=== PATIENT | female | born 1970 | race Two or more races ===

== ENCOUNTER 2024-07-22 19:17 | Outpatient (REF) | payer BC, SELFPAY ==
[2024-07-29 12:09] LABS: Age Gdln ACOG Testing Note (.); HPV Aptima Negative (Negative); IGP, Aptima HPV, rfx 16/18,45 Note (.)
== END 2024-07-22 19:18 | disposition home or self-care (01) ==
LOC: LAB 19:17
PROVIDERS: Visit Provider Physician Assistant
DX: Z01.419 Encounter for gynecological examination (general) (routine) without abnormal findings (principal)
CPT/HCPCS: 88175

== ENCOUNTER 2024-07-30 08:59 | Outpatient (OUT) | payer BC, SELFPAY ==
--- NOTE | 2024-07-30 09:13 | XR_ITS ---
[address] [address] Patient Name: JULISSA MAYA MRN: [id number] date: 1970 Sex: F Assigned Patient Location: [facility] Current Patient Location: [facility] Accession/Order Number: [id number] Exam Date: 07/30/2024 09:35 Report Date: 07/30/2024 10:12 At the request of: ROSA JERRY Procedure: XR DEXA axial skeleton EXAMINATION: XR DEXA axial skeleton HISTORY: Post Menopausal State Z78.0 COMPARISON: No relevant comparison available. TECHNIQUE: Dual-energy X-ray absorptiometry (DXA) was performed. FINDINGS: SPINE ANALYSIS: Average bone mineral density is 1.2-3 g/cm2. T-score (standard deviation relative to young adult mean): 0.2 . HIP ANALYSIS: Lowest bone mineral density is within the right femoral neck, 0.945 g/cm2. T-score (standard deviation relative to young adult mean): -0.7 . XR/XR DEXA axial skeleton IMPRESSION: World Health Organization Classification: Normal - Low Fracture Risk FRAX: Cannot calculate. Pharmacologic treatment recommendations * No uniform recommendation applies to all patients. Management plans must be individualized. * Consider initiating pharmacologic treatment in postmenopausal women and men >= 50 years of age who have the following: Primary fracture prevention: * T-score <= - 2.5 at the femoral neck, total hip, lumbar spine, 33% radius (some uncertainty with existing data) by DXA. * Low bone mass (osteopenia: T-score between - 1.0 and - 2.5) at the femoral neck or total hip by DXA with a 10-year hip fracture risk >= 3% or a 10-year major osteoporosis-related fracture risk >= 20% (i.e., clinical vertebral, hip, forearm, or proximal humerus) based on the [place]-adapted FRAXregistered model. Secondary fracture prevention: * Fracture of the hip or vertebra regardless of BMD [4, 5]. * Fracture of proximal humerus, pelvis, or distal forearm in persons with low bone mass (osteopenia: T-score between - 1.0 and - 2.5). The decision to treat should be individualized in persons with a fracture of the proximal humerus, pelvis, or distal forearm who do not have osteopenia or low BMD [12, 13]. Don MS, Zandra SL, Wilfredo KL, Tuyet EM, Juana KG, AJ, Demond ES. The clinician's guide to prevention and treatment of osteoporosis. Osteoporos Int. 2021;33(10):8916-8893. doi: 10.1007/h09712-780-30612-g. Epub 2021Feb 15. Erratum in: Osteoporos Int. 2021May 17;: PMID: [id number]; PMCID: [id number]. Electronically authenticated by: STAN VITAL Date: 07/30/2024 10:12
--- NOTE | 2024-07-30 09:13 | MM_ITS ---
Patient Name: JULISSA MAYA MR#: [id number] : 1970 Exam Date: 07/30/2024 Ordering Doctor: GAEL Chatman . RADIOLOGY REPORT PROCEDURE: MM TOMOSYNTHESIS SCREENING BI COMPARISON: MG MAMM SCREEN LUZMARIA W CAD, 01/18/2022. MG MAMM SCREEN LUZMARIA W CAD, 07/10/2023. INDICATIONS: Screening Calculator Name NCI Breast Cancer Risk Assessment Tool 5 Year Breast Cancer Risk 2.50% Lifetime Breast Cancer Risk 16.60% Personal Breast Cancer No Personal Ovarian Cancer No Treatments None Family Cancers Mother with breast cancer at age 73; Aunt-maternal with cervical cancer at age 25. LOCATION: [facility] BREAST COMPOSITION: The breasts are heterogeneously dense,which may obscure small masses. FINDINGS: DIAGNOSTIC CATEGORY 2--BENIGN FINDING. NO CHANGE FROM COMPARISON. Scattered benign-appearing nodules are present. Scattered benign-appearing calcifications are present. Scattered benign-appearing lymph nodes are present. RIGHT BREAST: No significant suspicious finding. LEFT BREAST: No significant suspicious finding. RECOMMENDATIONS: ROUTINE MAMMOGRAM AND CLINICAL EVALUATION IN 12 MONTHS. PLEASE NOTE: A NORMAL MAMMOGRAM DOES NOT EXCLUDE THE POSSIBILITY OF BREAST CANCER. A CLINICALLY SUSPICIOUS PALPABLE LUMP SHOULD BE BIOPSIED. Dictated by: Cholo Nuñez MD on 08/03/2024 at 08:59 Approved by: Cholo Nuñez MD on 08/03/2024 at 09:03
--- OUTSIDE RECORDS SUMMARY | 2024-07-30 09:18 | XMS_ITS | CCD ---
Author Organization [facility] Care Team Providers Care Site Monitor Name Role Phone MD Dottie Malcolm Attending Provider MD Tom Fishman Primary Care Provider [phone] Dottie Malcolm Unavailable Dottie Malcolm Admitting Unavailable Dottie Malcolm Attending Unavailable Tom Fishman Primary Care Unavailable Dottie Mlacolm Admitting Unavailable Dottie Malcolm Attending Unavailable Tom Fishman Primary Care Unavailable Dottie Malcolm Attending Unavailable Tom Fishman Primary Care Unavailable Dottie Malcolm Admitting Unavailable TOM FISHMAN Referring TOM Santiago Primary Care UnavailJENNY English Attending Unavailable Tom Fishman MD Primary Care Provider Allergies Allergy Classification Reported Allergen(s) Allergy Type Date of Onset Reaction(s) Facility (4 sources) Penicillin G Drug Allergy Unknown [employer] Other (3 sources) Penicillins; Translations: [PENICILLINS] Propensity to adverse reactions to drug (disorder) 7 [facility] Medications Current Medications Medication Drug Class(es) Dates Sig (Normalized) Sig (Original) Anoro Ellipta 62.5-25 MCG/INH (1 source) Start: 10-10-2022 take 1 puff(s) by inhalation once daily Anoro Ellipta 62.5-25 MCG/INH 1 puff Inhalation Once a day for 30 days Sep, Active Ascorbic Acid (6 sources) Vitamin C Ascorbic Acid (VITAMIN C PO) Take by oral route. Active Vitamin C Active Bisoprolol / hydroCHLOROthiazide (6 sources) Thiazide Diuretic, beta-Adrenergic Hussain Bisoprolol-hydroCHLO ROthiazide (ZIAC PO) 1 (one) time each day at the same time Active take 1 tablet by heaven th every twenty-four hours Bisoprolol-hydroCHLOROthiazide 5-6.25 MG 1 tablet Orally Once a day Active cetirizine hydrochloride 10 mg oral tablet (4 sources) Histamine-1 Receptor Antagonist take 1 tablet by mouth once daily ZyrTEC Allergy 10 MG 1 tablet Orally Once a day Active [place]-3 Fatty Acids (FISH OIL PO) (2 sources) Start: 024 [place]-3 Fatty Acids (FISH OIL PO) 01/20/2024 Active 28 actuat tiotropium 0.0025 mg/actuat inhalation spray (2 sources) Anticholinergic Start: 023 take 2 puff(s) by inhalation once daily Spiriva Respimat 2.5 MCG/ACT 2 puffs Inhalation Once a day for 30 days Nov, Active VITAMIN D PO (2 sources) VITAMIN D PO Vitamin D Active Vitamin D3 (4 sources) Vitamin D3 Activ e Problems Active Problems Problem Classification Problem Date Documented Date Episodic/Chronic Asthma (7 sources) Mild intermittent asthma; Translations: [Mild intermittent asthma, uncomplicated] Chronic Malaise and fatigue (1 source) Other fatigue; Translations: [Other fatigue] Onset: 04-07-2024 Episodic Nutritional deficiencies (1 source) Vitamin D deficiency, unspecified; Translations: [Vitamin D deficiency, unspecified] Onset: 04-07-2024 Chronic Other diseases of kidney and ureters (1 source) Disorder of kidney and ureter, unspecified; Translations: [Disorder of kidney and ureter, unspecified] Onset: 04-07-2024 Episodic Other liver diseases (1 source) Abnormal levels of other serum enzymes; Translations: [Abnormal levels of other serum enzymes] Onset: 04-07-2024 Episodic Other lower respiratory disease (1 source) Shortness of breath Episodic Other lower respiratory disease (3 sources) Nodule of lung; Translations: [Solitary pulmonary nodule] Episodic Other lower respiratory disease (2 sources) Solitary pulmonary nodule; Translations: [Solitary pulmonary nodule] Onset: 03-05-2023 Episodic Other screening for suspected conditions (not mental disorders or infectious disease) (2 sources) Patient encounter status; Translations: [Encounter for screening mammogram for malignant neoplasm of breast] 10-02-2024 Episodic Residual codes; unclassified (4 sources) Obstructive sleep apnea syndrome; Translations: [Obstructive sleep apnea (adult) (pediatric)] Chronic Residual codes; unclassified (4 sources) Obstructive sleep apnea (adult) (pediatric) Chronic Residual codes; unclassified (1 source) Obstructive sleep apnea (adult)(pediatric); Translations: [Obstructive sleep apnea (adult) (pediatric)] Onset: 11-06-2022 Chronic Residual codes; unclassified (2 sources) Postmenopausal state; Translations: [Asymptomatic menopausal state] 07-22-2024 Episodic Past or Other Problems Problem Classification Problem Date Documented Da te Episodic/Chronic Other lower respiratory disease (1 source) Shortness of breath; Translations: [Shortness of breath] Onset: 10-23-2022 Episodic Results Test Name Value Interpretation Reference Range Facil ity CBC AND AUTO DIFFon 04-07-20 ABSOLUTE BASOPHIL 0.0 X10E9/L Normal 0.0-0.2 [facility] Comment on above: Performed By: #### C MIHAI MCGINNIS, 83619-5, THYR, 25668-5 #### [facility] ([id number]) [address], [address] [place] [address] ABSOLUTE NEUTROPHIL 2.7 X10E9/L Normal 1.5-6.6 [facility] Comment on above: Performed By: #### Kiet MCGINNIS CMP, 27805-9, THYR, 60562-9 #### [facility] ([id number]) [address], [address] [place] [address] Basophils/100 WBC (Bld) 0.4 % Normal [facility] Comment on above: Performed By: #### C BCA CMP, 38351-9, THYR, 37643-1 #### [facility] ([id number]) [address], [address] [place] [address] Eosinophils (Bld) [#/Vol] 0.1 10*3/uL Normal 0.0-0.4 [facility] Comment on above: Performed By: #### Kiet BCA CMP, 95670-0, THYR, 82461-3 #### [facility] ([id number]) [address], [address] [place] [address] Eosinophils/100 WBC (Bld) 2.1 % Normal [facility] Comment on above: Performed By: #### C BCA, CMP, 14106-0, THYR, 90145-0 #### [facility] ([id number]) [address], [address] [place] [address] Erythrocyte distribution width (RBC) [Ratio] 13.7 % Normal 11.5-15.0 [facility] Comment on above: Performed By: #### C BCA, CMP, 48040-4, THYR, 15370-4 #### [facility] ([id number]) [address], [address] [place] [address] Hematocrit (Bld) [Volume fraction] 37.8 % Normal 35-47 [facility] Comment on above: Performed By: #### C BCA, CMP, 97607-1, THYR, 07475-2 #### [facility] ([id number]) [address] [place] [address] Hemoglobin (Bld) [Mass/Vol] 13.0 g/dL Normal 11.7-15.5 [facility] Comment on above: Performed By: #### C BCA, CMP, 50596-1, THYR, 07117-0 #### [facility] ([id number]) [address], [address] [place] [address] Lymphocytes (Bld) [#/Vol] 2.4 10*3/uL Normal 1.0-3.5 [facility] Comment on above: Performed By: #### C BCA, CMP, 69382-4, THYR, 56153-0 #### [facility] ([id number]) [address] [place] [address] Lymphocytes/100 WBC (Bld) 43.2 % Normal [facility] Comment on above: Performed By: #### C BCA, CMP, 78806-1, THYR, 41044-9 #### [facility] ([id number]) [address], [address] [place] [address] MCH (RBC) [Entitic mass] 30.6 pg Normal 27-34 [facility] Comment on above: Performed By: #### C BCA, CMP, 18724-5, THYR, 45107-2 #### [facility] ([id number]) [address] [address] [place] [address] MCHC (RBC) [Mass/Vol] 34.5 g/dL Normal 32-36 [facility] Comment on above: Performed By: #### C BCA, CMP, 58524-1, THYR, 74689-6 #### [facility] ([id number]) [address], [address] [place] [address] MCV (RBC) [Entitic vol] 89 fL Normal 80-100 [facility] Comment on above: Performed By: #### Kiet BCA, CMP, 28014-5, THYR, 02132-9 #### [facility] ([id number]) [address] [address] [place] [address] Monocytes (Bld) [#/Vol] 0.4 10*3/uL Normal 0-0.9 [facility] Comment on above: Performed By: #### C BCA, CMP, 63425-3, THYR, 70423-9 #### [facility] ([id number]) [address] [address] [place] [address] Monocytes/100 WBC (Bld) 6.5 % Normal [facility] Comment on above: Performed By: #### C BCA, CMP, 94618-4, THYR, 49154-5 #### [facility] ([id number]) [address] [address] [place] [address] Neutrophils/100 WBC (Bld) 47.8 % Normal [facility] Comment on above: Performed By: #### C BCA, CMP, 74088-0, THYR, 76405-6 #### [facility] ([id number]) [address], [facility] [address] [place] [address] Platelet mean volume (Bld) [Entitic vol] 10.7 fL Normal 7-12 [facility] Comment on above: Performed By: #### C BCA, CMP, 11478-8, THYR, 18243-6 #### [facility] ([id number]) [address] [address] [place] [address] Platelets (Bld) [#/Vol] 136 10*3/uL Low 150-450 [facility] Comment on above: Performed By: #### C BCA, CMP, 40821-8, THYR, 87891-5 #### [facility] ([id number]) [address] [facility] [address] [place] [address] RBC COUNT 4.26 X10E12/L Normal 3.80-5.20 [facility] Comment on above: Performed By: #### C BCA, CMP, 35162-8, THYR, 94019-0 #### [facility] ([id number]) [address] [address] [place] [address] WBC (Bld) [#/Vol] 5.6 10*3/uL Normal 4.0-11.0 [facility] Comment on above: Performed By: #### C BCA, CMP, 28862-3, THYR, 12632-9 #### [facility] ([id number]) [address], [address] [place] [address] COMPREHENSIVE METABOLIC PANE Misbah 04-07-2024 Albumin [Mass/Vol] 4.0 g/dL Normal 3.2-5.3 [facility] Comment on above: Performed By: #### C BCA, CMP, 46538-4, THYR, 72989-2 #### [facility] ([id number]) [address], [address] [place] [address] ALP [Catalytic activity/Vol] 89 U/L Normal 39-130 [facility] Comment on above: Performed By: #### C BCA, CMP, 65778-5, THYR, 09551-6 #### [facility] ([id number]) [address], [address] [place] [address] ALT [Catalytic activity/Vol] 47 U/L High 0-31 [facility] Comment on above: Performed By: #### C BCA, CMP, 05607-7, THYR, 83453-9 #### [facility] ([id number]) [address], [address] [place] [address] Anion gap [Moles/Vol] 8 mmol/L Normal 5-15 [facility] Comment on above: Performed By: #### C BCA, CMP, 81335-6, THYR, 17156-0 #### [facility] ([id number]) [address], [address] [place] [address] AST [Catalytic activity/Vol] 36 U/L Normal 0-41 [facility] Comment on above: Performed By: #### C BCA, CMP, 35115-0, THYR, 94136-9 #### [facility] ([id number]) [address], [address] [place] [address] Bilirubin [Mass/Vol] 1.2 mg/dL Normal 0.3-1.2 [facility] Comment on above: Performed By: #### C BCA, CMP, 60443-9, THYR, 33394-0 #### [facility] ([id number]) [address], [address] [place] [address] Calcium [Mass/Vol] 9.1 mg/dL Normal 8.5-10.5 [facility] Comment on above: Performed By: #### C BCA, CMP, 42431-8, THYR, 70079-0 #### [facility] ([id number]) [address], [address] [place] [address] Chloride [Moles/Vol] 102 mmol/L Normal 98-109 [facility] Comment on above: Performed By: #### C BCA, CMP, 85061-0, THYR, 64316-2 #### [facility] ([id number]) [address], [address] [place] [address] CO2 [Moles/Vol] 28 mmol/L Normal 22-32 [facility] Comment on above: Performed By: #### C BCA, CMP, 42102-4, THYR, 33454-0 #### [facility] ([id number]) [address], [address] [place] [address] Creatinine [Mass/Vol] 0.94 mg/dL Normal 0.40-1.00 [facility] Comment on above: Result Comment: METH OD TRACEABLE TO IDMS STANDARD Performed By: #### C BCA, CMP, 90558-7, THYR, 67037-3 #### [facility] ([id number]) [address], [address] [place] [address] GFR/1.73 sq M.predicted among non-blacks MDRD (S/P/Bld) [Vol rate/Area] 72 mL/min/{1.73_m2} Normal >59 [facility] Comment on above: Result Comment: Reported eGFR is based on the CKD-EPI 2020 equation that does not use a race coefficient. Performed By: #### C BCA, CMP, 61037-2, THYR, 24331-4 #### [facility] ([id number]) [address], [address] [place] [address] Glucose [Mass/Vol] 114 mg/dL High 65-99 [facility] Comment on above: Performed By: #### C BCA, CMP, 74612-8, THYR, 17194-4 #### [facility] ([id number]) [address], [address] [place] [address] Potassium [Moles/Vol] 4.0 mmol/L Normal 3.5-5.0 [facility] Comment on above: Performed By: #### C BCA, CMP, 10089-5, THYR, 94887-8 #### [facility] ([id number]) [address], [address] [place] [address] Protein [Mass/Vol] 7.1 g/dL Normal 6.0-8.0 [facility] Comment on above: Performed By: #### C BCA, CMP, 45803-3, THYR, 57506-6 #### [facility] ([id number]) [address] [place] [address] Sodium [Moles/Vol] 138 mmol/L Normal 134-146 [facility] Comment on above: Performed By: #### C BCA, CMP, 55736-7, THYR, 46785-1 #### [facility] ([id number]) [address] [place] [address] Urea nitrogen [Mass/Vol] 19 mg/dL Normal 5-23 [facility] Comment on above: Performed By: #### C BCA, CMP, 54371-7, THYR, 31305-9 #### [facility] ([id number]) [address], [address] [place] [address] Lipid 1996 panelon 4 Cholesterol [Mass/Vol] 184 mg/dL Normal 150-200 [facility] Comment on above: Performed By: #### C BCA, CMP, 07162-9, THYR, 35489-9 #### [facility] ([id number]) [address], [address] [place] [address] Cholesterol in HDL [Mass/Vol] 47 mg/dL Normal >39 [facility] Comment on above: Result Comment: HDL <40 mg/dL - High Risk HDL > or = 40mg/dL- Desirable HDL >60 mg/dL - Negative Risk Performed By: #### C BCA, CMP, 12441-2, THYR, 72005-1 #### [facility] ([id number]) [address], [address] [place] [address] Cholesterol in LDL [Mass/Vol] 116 mg/dL Normal <130 [facility] Comment on above: Result Comment: LDL <100 mg/dL - Desirable LDL >160 mg/dL - High Risk Performed By: #### C BCA, CMP, 24415-3, THYR, 42107-7 #### [facility] ([id number]) [address], [address] [place] [address] Cholesterol in VLDL [Mass/Vol] 21 mg/dL Normal 0-30 [facility] Comment on above: Performed By: #### C BCA, CMP, 31826-4, THYR, 06182-0 #### [facility] ([id number]) [address], [address] [place] [address] CHOLESTEROL:HDL 3.9 Normal 1.0-5.0 [facility] Comment on above: Performed By: #### C BCA, CMP, 37218-2, THYR, 27854-0 #### [facility] ([id number]) [address], [address] [place] [address] Triglyceride [Mass/Vol] 104 mg/dL Normal 27-150 [facility] Comment on above: Performed By: #### C BCA, CMP, 64247-1, THYR, 21094-1 #### [facility] ([id number]) [address] [place] [address] THYROID PROFILEon 04-07-2024 Free T4 [Mass/Vol] 0.70 ng/dL Normal 0.61-1.60 [facility] Comment on above: Performed By: #### C BCA, CMP, 69020-2, THYR, 91035-7 #### [facility] ([id number]) [address] [place] [address] TSH 1.16 uIU/mL Normal 0.49-4.67 [facility] Comment on above: Performed By: #### C RAS, CMP, 90388-6, THYR, 56301-0 #### [facility] ([id number]) [address] [place] [address] URINE CULTUREon 04-07-2024 Bacteria identified Cx Nom (U) CULTURE RESULTS 10,000 to 50,000 ORGANISMS/mL KLEBSIELLA PNEUMONIAE <10,000 ORGANISMS/mL NORMAL URO GENITAL JEFFRY [ S = SUSCEPTIBLE R = RESISTANT I = INTERMEDIATE S-DO = Susceptible-dose dependent NS = Non-suscceptible NO = No Interpretation ] Organism: KLEBSIELLA PNEUMONIAE Antibiotic Interpretation ELIAS Status AMPICILLIN R >=32 F AMP/SULBACTAM S 4/2 F CEFAZOLIN S <=4 F CEFTRIAXONE S <=1 F CIPROFLOXACIN S <=0.25 F GENTAMICIN S <=1 F LEVOFLOXACIN S <=0.12 F NITROFURANTOIN R 128 F PIPERACIL/TAZOBACTAM S <=4 F TOBRAMYCIN S <=1 F TRIMETH/SULFAMETHOXAZ OLE S <=1/19 F Susceptible [facility] Comment on above: Performed By: #### 6 30-4 #### [facility] ([id number]) [address] [place] [address] Vitamin D+Metabolites [Mass/ Vol]on 04-07-2024 VITAMIN D 25 HYD TOT 60.6 ng/mL Normal 30-100 [facility] Comment on above: Result Comment: Vitamin D status 25 [place] Vitamin D Deficiency <20 ng/mL Insufficiency 20-29 ng/mL Sufficiency 30-100 ng/mL Toxicity >100 ng/mL NOTE: A pediatric reference range has not been established by the urban sociologist of this kit. The [place] [employer] recommends a Vitamin D level of = or >20ng/mL in infants and children. Performed By: #### C BCA, [facility], 17198-1, THYR, 20551-4 #### [facility] ([id number]) [address] [place] [address] [address] [place] [address] [facility] chest wo [facility] 03-05-2023 CT chest wo [facility] [place] [address] CT Scan Report Signed Patient: Meera Vidal MR#: [id number] : 1970 Acct:[id number] Age/Sex: 52 / F ADM Date: 03/05/23 Loc: CT Room: Type: [facility] Attending Dr: Dottie Malcolm MD Copies to: Dottie Malcolm MD Ordering Provider: Dottie Malcolm MD Date of Service: 03/05/23 CT/CT chest wo con: R91.1 CT CHEST WITHOUT IV CONTRAST: CLINICAL HISTORY: Follow-up lung nodule COMPARISON: CT chest 10/23/2022 TECHNIQUE: Spiral images were obtained through the chest without IV contrast. This CT exam was performed using one or more following dose reduction techniques: Automated exposure control, adjustment of the mA and/or kV according to patient size, or use of iterative reconstruction technique. FINDINGS: Mediastinum:Thoracic aorta is normal in caliber. Pulmonary trunk appears nondilated. No pleural effusion. No lymphadenopathy. The esophagus is grossly unremarkable. Lungs:Dependent atelectatic changes. Bibasilar atelectasis. No consolidation, pneumothorax or pleural effusion. Stable 8 mm noncalcified pulmonary nodule right upper lobe now seen on series 5 image 21. Stable 3 mm noncalcified pulmonary nodule superior segment right lower lobe series 5 image 20. Previous identified 3 mm nodule involving the right lower lobe has resolved. No new or enlarging suspicious pulmonary nodules. Abd:No acute findings. Soft tissues/Bones: Visualized soft tissue surrounding the chest wall demonstrate no acute findings. Osseous structures demonstrate degenerative change. 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 CT/CT chest wo con IMPRESSION: Previously identified 3 mm nodule involving the right lower lobe has resolved. The additional remaining nodules within the right lung are unchanged. Repeat CT in one year is recommended to ensure stability. Impression dictated by: Chino Barraza Jr., Dwight03/05/2023 3:42 PM Dictation Location: [place] [address] Transcribed By: [facility] 03/05/23 1542 Dictated By: Chino Barraza Jr, DO 03/05/23 1537 Signed By: 03/05/23 1542 [facility] CT chest wo conon 10-23-2022 CT chest wo con [facility] [place] [address] CT Scan Report Signed Patient: Meera Vidal MR#: [id number] : 1970 Acct:[id number] Age/Sex: 52 / F ADM Date: 10/23/22 Loc: CT Room: Type: [facility] Attending Dr: Dottie Malcolm MD Copies to: Dottie Malcolm MD Ordering Provider: Dottie Malcolm MD Date of Service: 10/23/22 CT/CT chest wo con: R06.02 CT CHEST WITHOUT IV CONTRAST: CLINICAL HISTORY: Difficulty breathing. COMPARISON: Chest 05/08/2022 TECHNIQUE: Spiral images were obtained through the chest without IV contrast. This CT exam was performed using one or more following dose reduction techniques: Automated exposure control, adjustment of the mA and/or kV according to patient size, or use of iterative reconstruction technique. FINDINGS: Mediastinum:Thoracic aorta appears normal in caliber. Pulmonary trunk appears nondilated. No pleural effusion. No lymphadenopathy. The esophagus is grossly unremarkable. Lungs:No consolidation, pneumothorax or pleural effusion. Mild scattered areas of atelectasis/scarring. Trachea and distal airways appear patent. 8 mm nodule right upper lobe series 4 image 19. 3 mm pulmonary nodule superior segment right lower lobe series 4 image 20. 3 mm pulmonary nodule right lower lobe series 4 image 30. Abd:No acute findings. Soft tissues/Bones: No focal soft tissue abnormality. Osseous structures demonstrate degenerative change. 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 CT/CT chest wo con IMPRESSION: No acute findings. Noncalcified pulmonary nodules, largest measuring 8 mm within the right upper lobe. Please see follow-up recommendations below. Fleischner Society guidelines for follow-up and management of incidentally detected pulmonary nodules: ? ? Multiple Solid Nodules: ? ? Nodule size equals 6-8 mm In a low-risk patient, CT at 3-6 months, then consider CT at 18-24 months. In a high-risk patient, CT at 3-6 months, then CT at 18-24 months. ? Impression dictated by: Chino Barraza Jr., D.O.10/23/2022 2:41 PM Dictation Location: [place] [address] Transcribed By: [facility] 10/23/22 1441 Dictated By: Chino Barraza Jr, DO 10/23/22 1436 Signed By: 10/23/22 1441 [facility] Vital Signs Date Time Vital Sign Value Performing Clinician Facility 07-22-2024 11:15-0400 Body height 162.6 cm Jenny MAYO Work Phone: [facility] 07-22-2024 11:15-0400 Body mass index (BMI) [Ratio] 39.48 kg/m2 Jenny MAYO Work Phone: [facility] 07-22-2024 11:15-0400 Body weight 104.33 kg Jenny MAYO Work Phone: [facility] 07-22-2024 11:15-0400 Diastolic blood pressure 78 mm[Hg] Jenny MAYO Work Phone: [facility] 07-22-2024 11:15-0400 Systolic blood pressure 122 mm[Hg] Jenny MAYO Work Phone: [facility] 09-11-2023 09:15-0500 Body height 160.02 cm Dottie Malcolm Other [employer] Other 09-11-2023 09:15-0500 Body mass index (BMI) [Ratio] 40.1 kg/m2 Dottie Ribeiroban Other [employer] Other 09-11-2023 09:15-0500 Body temperature 96.8 [degF] Dottie Gemaban Other [employer] Other 09-11-2023 09:15-0500 Body weight 102.7 kg Dottie Ribeiroban Other [employer] Other 09-11-2023 09:15-0500 Diastolic blood pressure 86 mm[Hg] Dottie Ribeiroban Other [employer] Other 09-11-2023 09:15-0500 Respiratory rate 20 /min Dottie Ribeiroban Other [employer] Other 09-11-2023 09:15-0500 SaO2% (BldA) [Mass fraction] 98 % Dottie Ribeiroban Other [employer] Other 09-11-2023 09:15-0500 Systolic blood pressure 142 mm[Hg] Dottie Gemaban Other [employer] Other 12-06-2022 09:30-0500 Body height 160.02 cm Dottie Ribeiroban Other [employer] Other 12-06-2022 09:30-0500 Body mass index (BMI) [Ratio] 40.56 kg/m2 Dottie Ribeiroban Other [employer] Other 12-06-2022 09:30-0500 Body temperature 97.4 [degF] Raulal Chaban Other [employer] Other 12-06-2022 09:30-0500 Body weight 103.87 kg Dottie Chaban Other [employer] Other 12-06-2022 09:30-0500 Diastolic blood pressure 86 mm[Hg] Raulal Chaban Other [employer] Other 12-06-2022 09:30-0500 Respiratory rate 20 /min Dottie Chaban Other [employer] Other 12-06-2022 09:30-0500 SaO2% (BldA) [Mass fraction] 98 % Dottie Ribeiroban Other [employer] Other 12-06-2022 09:30-0500 Systolic blood pressure 132 mm[Hg] Dottie Chaban Other [employer] Other 10-10-2022 10:15-0500 Body height 160.02 cm Dottie Ribeiroban Other [employer] Other 10-10-2022 10:15-0500 Body mass index (BMI) [Ratio] 40.21 kg/m2 Dottie Ribeiroban Other [employer] Other 10-10-2022 10:15-0500 Body temperature 97.3 [degF] Raulal Chaban Other [employer] Other 10-10-2022 10:15-0500 Body weight 102.97 kg Dottie Chaban Other [employer] Other 10-10-2022 10:15-0500 Diastolic blood pressure 80 mm[Hg] Raultabby Ribeiromarcelo Other [employer] Other 10-10-2022 10:15-0500 Respiratory rate 20 /min Dottie Ribeiromarcelo Other [employer] Other 10-10-2022 10:15-0500 SaO2% (BldA) [Mass fraction] 98 % Dottie Ribeiroban Other [employer] Other 10-10-2022 10:15-0500 Systolic blood pressure 126 mm[Hg] Dottie Yun Other [employer] Other Encounters Encounter Date Encounter Type Care Provider Facility Start: 07-22-2024 End: 07-22-2024 Bamboo flowsheet Jenny MAYO Work Phone: [facility] Start: 07-22-2024 End: 07-22-2024 Bamboo flowsheet Jenny MAYO Work Phone: [facility] Start: 07-22-2024 End: 07-22-2024 Patient encounter procedure Jenny MAYO Work Phone: [facility] Start: 07-22-2024 End: 07-22-2024 Periodic preventive med est patient 40-64yrs Jenny MAYO Work Phone: [facility] Comment on above: Well woman exam with routine gynecological exam; Postmenopausal state; Breast cancer screening by mammogram Start: 07-22-2024 End: 07-22-2024 ambulatory JENNY JERRY Not Available Start: 04-07-2024 End: 04-07-2024 ambulatory [facility] Start: 09-11-2023 End: 09-11-2023 ambulatory Dottie Malcolm Other [employer] Other Start: 09-11-2023 Office outpatient vi sit 15 minutes Kamal Chaban [facility] Start: 06-12-2023 End: 06-12-2023 ambulatory Kamal Chaban Other [employer] Other Start: 06-12-2023 Telephone encounter Kamtabby Ribeiroban [facility] Start: 03-05-2023 End: 03-05-2023 ambulatory Kamal Chaban Facility:[facility] Start: 12-06-2022 End: 12-06-2022 ambulatory Kamal Chaban Other [employer] Other Start: 12-06-2022 Office outpatient vi sit 25 minutes Kamal Chaban [facility] Start: 11-06-2022 End: 11-06-2022 ambulatory Kamal Chaban Facility:[facility] Start: 11-06-2022 End: 11-06-2022 ambulatory MD Tom Fishman Work Phone: [facility] Work Phone: Start: 11-06-2022 End: 11-06-2022 Patient encounter procedure MD Tom Fishman Work Phone: [facility] Work Phone: Start: 10-23-2022 End: 10-23-2022 ambulatory Kamal Chaban Facility:[facility] Start: 10-23-2022 End: 10-23-2022 ambulatory MD Tom Fishman Work Phone: [facility] Work Phone: Start: 10-23-2022 End: 10-23-2022 Patient encounter procedure MD Tom Fishman Work Phone: [facility] [place] Work Phone: Start: 10-10-2022 End: 10-10-2022 ambulatory Kamal Chaban Other [employer] Other Start: 10-10-2022 Office outpatient ne w 45 minutes Dottie Malcolm [facility] Procedures Date Procedure Procedure Detail Performing Clinician Start: 10-23-2022 CT of chest without contrast MD Tom Fishman Work Phone: Plan of Treatment Date Care Activity Detail Author Start: 07-27-2025 End: 07-27-2025 Patient encounter procedure 07/27/2025 10:00 AM EDT Office Visit [facility] [address] [place] [address] Jenny Jerry PA [address] [place] [address] [place] [address] [facility] Start: 07-22-2024 End: 07-22-2025 DXA Skeletal system Views for bone density DEXA bone density Imaging Routine Postmenopausal state Expected: 07/22/2024 (Approximate), Expires: 07/22/2025 [facility] Comment on above: Expected: 07/22/2024 (Approximate), Expires: 07/22/2025 Start: 07-22-2024 End: 09-21-2025 MG Breast - bilateral Screening Bilateral screening mammogram Imaging Routine Breast cancer screening by mammogram Expected: 07/22/2024, Expires: 09/21/2025 [facility] Work Phone: Comment on above: Expected: 07/22/2024 , Expires: 09/21/2025 Start: 07-22-2024 End: 07-22-2024 Patient encounter procedure 07/22/2024 11:00 AM EDT Office Visit [facility] [address] [place] [phone] Jenny Jerry, PA [address] [place], [place] [id number] Arrived [facility] Comment on above: Arrived THIN PREP TIS PAP AN D HR HPV DNA THIN PREP TIS PAP AND HR HPV DNA Pathology and Cytology Routine Well woman exam with routine gynecological exam Ordered: 07/22/2024 [facility] Comment on above: Ordered: 07/22/2024 Payers Date Payer Category Payer Self-pay 2006 Unknown BCBS BCBS [id number] 2006-Present [phone] [address] [place] [address] [id number] 2006 Unknown [id number] 1968 Unknown [id number] 1970 Unknown [id number] Unknown [id number] Unknown [id number] Unknown [id number] Social History Date Type Detail Facility Tobacco smoking status [facility] Unknown if ever smoked [facility] Work Phone: Start: 1970 Sex Assigned At Female F [facility] Sex Assigned At [employer] Other Tobacco smoking status [facility] Tobacco smoking consumption unknown [facility] Healthcare Start: 1970 Sex assigned at Not on file [facility] History of Present illness Narrative 07-22-2024 GAEL Pisano - 07/22/2024 11:00 AM EDT Note Date & Type Note Facility 07-22-2024 History of Presen t illness Narrative Reason for Appointment: Patient ID: Meera Vidal is a 53 y.o. female who presents for Well Women Visit Patient presents today for Annual Exam. MEDICATIONS Current Outpatient Medications Medication Instructions Ascorbic Acid (VITAMIN C PO) Take by oral route. Bisoprolol-hydroCHLOROthiazide (ZIAC PO) Every 24 hours [place]-3 Fatty Acids (FISH OIL PO) VITAMIN D PO Vitamin D ALLERGIES Allergies Allergen Reactions Penicillins PROBLEMS Active Ambulatory Problems Diagnosis Date Noted No Active Ambulatory Problems Resolved Ambulatory Problems Diagnosis Date Noted No Resolved Ambulatory Problems Past Medical History: Diagnosis Date Hypertension (CMS/HCC) Sleep apnea HISTORY PAST MEDICAL HISTORY SOCIAL HISTORY Past Medical History: Diagnosis Date Hypertension (CMS/HCC) Sleep apnea Social History Tobacco Use Smoking status: Not on file Smokeless tobacco: Not on file Substance Use Topics Alcohol use: Not on file Drug use: Not on file FAMILY HISTORY No family history on file. SURGICAL HISTORY Past Surgical History: Procedure Laterality Date BREAST BIOPSY Left 1996 US GUIDED NEEDLE LIVER BIOPSY 11/16/2019 US GUIDED NEEDLE LIVER BIOPSY 11/16/2019 REVIEW OF SYSTEMS Review of Systems: Review of Systems Constitutional: Negative. HENT: Negative. Eyes: Negative. Respiratory: Negative. Cardiovascular: Negative. Gastrointestinal: Negative. Genitourinary: Negative. Musculoskeletal: Negative. Skin: Negative. Neurological: Negative. All other systems reviewed and are negative. Hematological: Negative. Endocrine: Negative. Allergic/Immunologic: Negative. OBJECTIVE Objective: Physical Exam Constitutional: Appearance: Normal appearance. She is well-developed. Genitourinary: Vulva normal. Right Adnexa: not tender and no mass present. Left Adnexa: not tender and no mass present. No cervical discharge. Breasts: Breasts are soft. Right: Normal. Left: Normal. HENT: Head: Normocephalic. Nose: Nose normal. Mouth/Throat: Mouth: Mucous membranes are moist. Cardiovascular: Rate and Rhythm: Normal rate and regular rhythm. Pulmonary: Effort: Pulmonary effort is normal. Breath sounds: Normal breath sounds. Abdominal: General: Bowel sounds are normal. There is no distension. Palpations: Abdomen is soft. Tenderness: There is no abdominal tenderness. There is no guarding or rebound. Musculoskeletal: General: No swelling. Normal range of motion. Cervical back: Normal range of motion. Right lower leg: No edema. Left lower leg: No edema. Neurological: General: No focal deficit present. Mental Status: She is alert and oriented to person, place, and time. Skin: General: Skin is warm and dry. Psychiatric: Mood and Affect: Mood normal. Behavior: Behavior normal. Vitals and nursing note reviewed. Exam conducted with a blocking machine tender present. Vitals: Estimated body mass index is 39.48 kg/m as calculated from the following: Height as of this encounter: 5' 4 . Weight as of this encounter: 230 lb. BP: 122/78 No LMP recorded. Patient is postmenopausal. ASSESSMENT & PLAN ICD-10-CM 1. Well woman exam with routine gynecological exam Z01.419 THIN PREP TIS PAP AND HR HPV DNA 2. Postmenopausal state Z78.0 DEXA bone density 3. Breast cancer screening by mammogram Z12.31 Bilateral screening mammogram Bilateral screening mammogram Annual Exam: Patient presents today for an annual exam. Patient states she is doing well and has no complaints. Pap was obtained without difficulty. Orders Placed This Encounter Procedures Bilateral screening mammogram DEXA bone density Follow Up: Patient is to return in one year for annual unless needed otherwise. Documented by GAEL Pisano on behalf of: GAEL Pisano documented in this encounter [facility] Evaluation note 09-11-2023 Note Date & Type Note Facility 09-11-2023 Evaluation note Encounter Date Diagnosis Assessment Notes Aug, Obstructive sleep apnea (ICD-10 - G47.33) Aug, Mild intermittent reactive airway disease without complication (ICD-10 - J45.20) [employer] Other Evaluation note 06-12-2023 Note Date & Type Note Facility 06-12-2023 Evaluation note Encounter Date Diagnosis Assessment Notes May, Obstructive sleep apnea (ICD-10 - G47.33) [employer] Other Evaluation note 12-06-2022 Note Date & Type Note Facility 12-06-2022 Evaluation note Encounter Date Diagnosis Assessment Notes Nov, Obstructive sleep apnea (ICD-10 - G47.33) Nov, Mild intermittent reactive airway disease without complication (ICD-10 - J45.20) Nov, Lung nodule (ICD-10 - R91.1) Discussed CT findings and follow-up plans [employer] Other Evaluation note 10-10-2022 Note Date & Type Note Facility 10-10-2022 Evaluation note Encounter Date Diagnosis Assessment Notes Sep, Mild intermittent reactive airway disease without complication (ICD-10 - J45.20) Anoro samples and education please Sep, Obstructive sleep apnea (ICD-10 - G47.33) Sep, Shortness of breath (ICD-10 - R06.02) [employer] Other Evaluation note Note Date & Type Note Facility Evaluation note No assessment information availa [facility] Work Phone: Evaluation note Note Date & Type Note Facility Evaluation note Diagnosis Well woman exam with routine gynecological exam Routine gynecological examination Postmenopausal state Asymptomatic postmenopausal status (age-related) (natural) Breast cancer screening by mammogram documented in this encounter [facility] History general Narrative - Reported Note Date & Type Note Facility History general Narrative - Reported Type Medical History hypertension Medical History COPD Surgical History breast duct removal 1998 [employer] Other Chief Complaint and Reason for Visit Chief Complaint g47.33 r06.02 Chief Complaint g47.33 r06.02 g47.33 r06.02 Advance Directives Advance Directive Response Recorded Date/ Time Advance Directives No October 23, 2022 3:57pm Summary Purpose Family History No Family History Records FoundNo Family History Records FoundNo Family History Records Found Additional Source Comments Care Teams (unrecognized sec tion and content) Team Status: Inactive Member Role Status Dates Dottie Malcolm MD Attending Provider Active Tom Fishman MD Primary Care Provider Active Team Status: Active Member Role Status Dates Tom Fishman MD Primary Care Provider Active Site Monitor Relationship Specialty Start Date End Date Tom Fishman MD [address] [place] [phone] PCP - General Internal Medicine 07/22/24 Site Monitor Relationship Specialty Start Date End Date Tom Fishman MD [address] [place] [address] PCP - General Internal Medicine 07/22/24 Goals (unrecognized section and content) Goals may be documented in a n alternate sectionGoals may be documented in an alternate sectionNo InformationNo InformationNo InformationNo Information REASON FOR VISIT (unrecogniz ed section and content) Reason Comments Well Women Visit INFORMATION SOURCE (unrecogn ized section and content) DATE CREATED AUTHOR 03/29/2023 [facility] DATE CREATED AUTHOR AUTHOR'S ORGANIZ ATION 04/10/2024 [facility] DATE CREATED AUTHOR AUTHOR'S ORGANIZ ATION 07/24/2024 [facility] [employer] EPIC FOR RECORDS PERTAINING TO PATIENTS WHO ARE OR HAVE BEEN ENROLLED IN A CHEMICAL DEPENDENCY/SUBSTANCEABUSE PROGRAM, SOME INFORMATION MAY BE OMITTED. This clinical summary was aggregated from multiple sources. Caution should be exercised in using it in the provision of clinical care. This summary normalizes information from multiple sources, and as a consequence, information in this document may materially change the coding, format and clinical context of patient data. In addition, data may be omitted in some cases. CLINICAL DECISIONS SHOULD BE BASED ON THE PRIMARY CLINICAL RECORDS. [employer] provides no warranty or guarantee of the accuracy or completeness of information in this document.
== END 2024-07-30 09:00 | disposition home or self-care (01) ==
LOC: MAMMO 09:03
PROVIDERS: Visit Provider Physician Assistant
DX: Z12.31 Encounter for screening mammogram for malignant neoplasm of breast (principal); Z78.0 Asymptomatic menopausal state; Z80.3 Family history of malignant neoplasm of breast; Z80.8 Family history of malignant neoplasm of other organs or systems
CPT/HCPCS: 77063; 77067; 77080

== ENCOUNTER 2025-07-27 19:38 | Outpatient (REF) | payer BC, SELFPAY ==
--- OUTSIDE RECORDS SUMMARY | 2025-07-27 10:00 | XMS_ITS | Encounter Summary ---
Author Organization [facility] Address [address] [place] [address] Care Team Providers Care Media Sales Executive Name Role Phone Jenny Terrell MD Primary Care Provider [phone]- [phone] Reason for Visit * Reason Comments Well Women Visit Encounter Details Date Type Department Care Team (Late st Contact Info) Description 07/27/2025 10:00 AM EDT Office Visit [facility] [address] [place] [address] Priyanka Chandra, MAGGIE [address] [place] [address] Well woman exam with routine gynecological exam; Breast cancer screening by mammogram; Hormone disorder; Weight gain Social History Tobacco Use Types Packs/Day Years Used Date Smoking Tobacco: Never Assessed Comments No Sex and Gender Information Value Date Recorded Sex Assigned at Not on file Legal Sex Female 7:35 PM EDT Gender Identity Not on file Sexual Orientation Not on file documented as of this encounter Last Filed Vital Signs Vital Sign Reading Time Taken Comments Blood Pressure 128/80 07/27/2025 10:10 AM EDT Pulse - - Temperature - - Respiratory Rate - - Oxygen Saturation - - Inhaled Oxygen Concentration - - Weight 109 kg (240 lb) 07/27/2025 10:10 AM EDT Height - - Body Mass Index 41.2 07/22/2024 11:15 AM EDT documented in this encounter Progress Notes * Priyanka Chandra, GOVERNOR ASSEMBLER - 07/27/2025 10:00 AM EDT Reason for Appointment: Patient ID: Meera Vidal is a 54 y.o. female who presents for Well Women Visit Patient presents today for Annual Exam. MEDICATIONS Current Outpatient Medications Medication Instructions Ascorbic Acid (VITAMIN C PO) Take by oral route. Bisoprolol-hydroCHLOROthiazide (ZIAC PO) Every 24 hours [place]-3 Fatty Acids (FISH OIL PO) VITAMIN D PO Vitamin D ALLERGIES Allergies Allergen Reactions Penicillins PROBLEMS Active Ambulatory Problems Diagnosis Date Noted No Active Ambulatory Problems Resolved Ambulatory Problems Diagnosis Date Noted No Resolved Ambulatory Problems Past Medical History: Diagnosis Date Hypertension Sleep apnea HISTORY PAST MEDICAL HISTORY SOCIAL HISTORY Past Medical History: Diagnosis Date Hypertension Sleep apnea Social History Tobacco Use Smoking status: Not on file Smokeless tobacco: Not on file Substance Use Topics Alcohol use: Not on file Drug use: Not on file FAMILY HISTORY Family History Problem Relation Name Age of Onset Ovarian cancer Mother's Sister Thyroid cancer Mother's Sister Heart disease Maternal Grandmother SURGICAL HISTORY Past Surgical History: Procedure Laterality Date BREAST BIOPSY Left 1996 US GUIDED NEEDLE LIVER BIOPSY 11/16/2019 US GUIDED NEEDLE LIVER BIOPSY 11/16/2019 REVIEW OF SYSTEMS Review of Systems: Review of Systems Constitutional: Positive for fatigue, night sweats, unexpected weight change and hot flashes. HENT: Negative. Eyes: Negative. Respiratory: Negative. Cardiovascular: Negative. Gastrointestinal: Negative. Genitourinary: Negative. Musculoskeletal: Negative. Skin: Negative. Neurological: Negative. All other systems reviewed and are negative. Hematological: Negative. Allergic/Immunologic: Negative. OBJECTIVE Objective: Physical Exam Constitutional: Appearance: Normal appearance. She is well-developed. Genitourinary: Vulva normal. No vaginal prolapse present. No vaginal atrophy present. Breasts: Breasts are soft. Right: Normal. Left: Normal. Cardiovascular: Rate and Rhythm: Normal rate and regular rhythm. Pulmonary: Effort: Pulmonary effort is normal. Breath sounds: Normal breath sounds. Abdominal: General: Bowel sounds are normal. There is no distension. Palpations: Abdomen is soft. Tenderness: There is no abdominal tenderness. There is no guarding or rebound. Musculoskeletal: General: No swelling. Normal range of motion. Right lower leg: No edema. Left lower leg: No edema. Neurological: Mental Status: She is alert and oriented to person, place, and time. Skin: General: Skin is warm and dry. Psychiatric: Mood and Affect: Mood normal. Behavior: Behavior normal. Vitals and nursing note reviewed. Exam conducted with a production mechanic present. Vitals: Estimated body mass index is 41.2 kg/m?? as calculated from the following: Height as of 07/22/24: 5' 4 . Weight as of this encounter: 240 lb. BP: 128/80 No LMP recorded. Patient is postmenopausal. ASSESSMENT & PLAN ICD-10-CM 1. Well woman exam with routine gynecological exam Z01.419 THIN PREP TIS PAP AND HR HPV DNA 2. Breast cancer screening by mammogram Z12.31 Bilateral screening mammogram Bilateral screening mammogram Annual: Patient presents today for an annual exam. Patient states she is doing well and has no complaints. Pap was obtained without difficulty and patient given mammogram order to have scheduled/obtained. Patient does experience some weight gain and some hormone changes. Patient was advised can use Metformin, Adipex and GLP1. Patient does not wish for these at this time Discussed Hormone labs and compound pharmacy with patient. Patient would like to proceed with Buderer packet and labs. Orders Placed This Encounter Procedures Bilateral screening mammogram Follow Up: Patient is to return in one year for annual unless needed otherwise. Documented by Caryn Guevara LPN on behalf of: Priyanka Chandra NP documented in this encounter Plan of Treatment Upcoming Encounters Date Type Department Care Team (Late st Contact Info) Description 08/02/2026 2:00 PM EDT Procedure Visit [facility] [address] [place] [phone] Jenny Chatman PA [address] [place] [address] Scheduled Orders Name Type Priority Associated Diagnoses Orde r Schedule Bilateral screening mammogram Imaging Routine Breast cancer screening by mammogram Expected: 07/27/2025, Expires: 09/26/2026 THIN PREP TIS PAP AND HR HPV DNA Pathology and Cytology Routine Well woman exam with routine gynecological exam Ordered: 07/27/2025 Estradiol Lab Routine Hormone disorder Ordered: 07/27/2025 Estrone Lab Routine Hormone disorder Ordered: 07/27/2025 Cortisol, free Lab Routine Hormone disorder Expected: 07/27/2025 (Approximate), Expires: 07/27/2026 DHEA-sulfate Lab Routine Hormone disorder Ordered: 07/27/2025 Sex hormone binding globulin Lab Routine Hormone disorder Ordered: 07/27/2025 Insulin, total Lab Routine Hormone disorder Expected: 07/27/2025 (Approximate), Expires: 07/27/2026 Serotonin serum Lab Routine Hormone disorder Expected: 07/27/2025 (Approximate), Expires: 07/27/2026 TSH Lab Routine Hormone disorder Ordered: 07/27/2025 T4, free Lab Routine Hormone disorder Ordered: 07/27/2025 T3, reverse Lab Routine Hormone disorder Ordered: 07/27/2025 Progesterone Lab Routine Hormone disorder Ordered: 07/27/2025 Vitamin D 1,25 dihydroxy Lab Routine Hormone disorder Ordered: 07/27/2025 Ferritin Lab Routine Hormone disorder Ordered: 07/27/2025 T3, free Lab Routine Hormone disorder Ordered: 07/27/2025 Thyroglobulin Lab Routine Hormone disorder Expected: 07/27/2025 (Approximate), Expires: 07/27/2026 Thyroglobulin Antibody Lab Routine Hormone disorder Expected: 07/27/2025 (Approximate), Expires: 07/27/2026 Thyroid peroxidase antibody Lab Routine Hormone disorder Ordered: 07/27/2025 T4 Lab Routine Hormone disorder Expected: 07/27/2025 (Approximate), Expires: 07/27/2026 TESTOSTERONE, FREE Lab Routine Hormone disorder Ordered: 07/27/2025 Testosterone, free, total Lab Routine Hormone disorder Ordered: 07/27/2025 Hemoglobin A1c Lab Routine Hormone disorder Ordered: 07/27/2025 Glucose, random Lab Routine Hormone disorder Expected: 07/27/2025 (Approximate), Expires: 07/27/2026 C-peptide Lab Routine Hormone disorder Expected: 07/27/2025 (Approximate), Expires: 07/27/2026 documented as of this encounter Visit Diagnoses Diagnosis Well woman exam with routine gynecological exam Routine gynecological examination Breast cancer screening by mammogram Hormone disorder Unspecified endocrine disorder Weight gain Other symptoms concerning nutrition, metabolism, and development documented in this encounter Care Teams Media Sales Executive Relationship Specialty Start Date End Date Jenny Terrell MD [address] [facility] [phone] PCP - General Internal Medicine 07/22/24 documented as of this encounter
--- OUTSIDE RECORDS SUMMARY | 2025-07-27 19:41 | XMS_ITS | Encounter Summary ---
Author Organization [facility] Address [address] [place] [address] Care Team Providers Care Electric Distribution Engineer Name Role Phone Jenny Terrell MD Primary Care Provider [phone]- [phone] Encounter Details Date Type Department Care Team (Late Contact Info) Description 08/03/2024 Abstract [facility] [address] [place] [address] Jenny Chatman PA [address] [place], [facility] Social History Tobacco Use Types Packs/Day Years Used Date Smoking Tobacco: Never Assessed Comments No Sex and Gender Information Value Date Recorded Sex Assigned at Not on file Legal Sex Female 7:35 PM EDT Gender Identity Not on file Sexual Orientation Not on file documented as of this encounter Plan of Treatment Upcoming Encounters Date Type Department Care Team ([facility] Contact Info) Description 08/02/2026 2:00 PM EDT Procedure Visit [facility] [address] [place] [address] Jenny Chatman, PA [address] [facility] [place], [facility] documented as of this encounter Visit Diagnoses Not on filedocumented in this encounter Care Teams Electric Distribution Engineer Relationship Specialty Start Date End Date Jenny Terrell MD [address] [place] [phone] PCP - General Internal Medicine 07/22/24 documented as of this encounter
--- OUTSIDE RECORDS SUMMARY | 2025-07-27 19:41 | XMS_ITS | Encounter Summary ---
Author Organization [facility] Address [address] [place] [address] Care Team Providers Care General Pediatrician Name Role Phone Jenny Terrell MD Primary Care Provider +1- [phone] Encounter Details Date Type Department Care Team (Late Contact Info) Description 07/30/2024 Clinisync Result Encounter [facility] External Department Unsolicited Jenny Jerry PA [address] [facility] [address] [place], [place] [id number] Social History Tobacco Use Types Packs/Day Years Used Date Smoking Tobacco: Never Assessed Comments No Sex and Gender Information Value Date Recorded Sex Assigned at Not on file Legal Sex Female 7:35 PM EDT Gender Identity Not on file Sexual Orientation Not on file documented as of this encounter Plan of Treatment Upcoming Encounters Date Type Department Care Team (Late Contact Info) Description 08/02/2026 2:00 PM EDT Procedure Visit [facility] OBT[facility]NA [address] [place] [phone] Jenny Jerry PA [address] [place], [place] [address] documented as of this encounter Procedures Procedure Name Priority Date/Time Associated Diagnosis Comments XR DEXA AXIAL SKELETON 07/30/2024 10:12 AM EDT documented in this encounter Results * XR DEXA AXIAL SKELETON (07/30/2024 10:12 AM EDT) Anatomical Region Laterality Modality Other 07/30/2024 10:1 2 AM EDT Narrative 07/30/2024 10:15 AM EDT [address] [address] XRay Report Signed Patient: JULISSA MAYA MR#: [id number] : 1970 Acct:[id number] Age/Sex: 53 / F ADM Date: 07/30/24 Loc: MAMMO Attending Dr: Jenny Jerry Ordering Physician: Jenny Jerry Date of Service: 07/30/24 Procedure(s): XR DEXA axial skeleton Accession Number(s): [id number] cc: Jenny Jerry; Physician,Non-Staff M.D. The [address] [address] Patient Name: JULISSA MAYA MRN: [id number] date: 1970 Sex: F Assigned Patient Location: MAMMO Current Patient Location: MAMMO Accession/Order Number: [id number] Exam Date: 07/30/2024 09:35 Report Date: 07/30/2024 10:12 At the request of: JENNY JERRY Procedure: XR DEXA axial skeleton EXAMINATION: XR DEXA axial skeleton HISTORY: Post Menopausal State Z78.0 COMPARISON: No relevant comparison available. TECHNIQUE: Dual-energy X-ray absorptiometry (DXA) was performed. FINDINGS: SPINE ANALYSIS: Average bone mineral density is 1.2-3 g/cm2. T-score (standard deviation relative to young adult mean): 0.2 . HIP ANALYSIS: Lowest bone mineral density is within the right femoral neck, 0.945 g/cm2. T-score (standard deviation relative to young adult mean): -0.7 . XR/XR DEXA axial skeleton IMPRESSION: World Health Organization Classification: Normal - Low Fracture Risk FRAX: Cannot calculate. Pharmacologic treatment recommendations * No uniform recommendation applies to all patients. Management plans must be individualized. * Consider initiating pharmacologic treatment in postmenopausal women and men >= 50 years of age who have the following: Primary fracture prevention: * T-score <= - 2.5 at the femoral neck, total hip, lumbar spine, 33% radius (some uncertainty with existing data) by DXA. * Low bone mass (osteopenia: T-score between - 1.0 and - 2.5) at the femoral neck or total hip by DXA with a 10-year hip fracture risk >= 3% or a 10-year major osteoporosis-related fracture risk >= 20% (i.e., clinical vertebral, hip, forearm, or proximal humerus) based on the US-adapted FRAXregistered model. Secondary fracture prevention: * Fracture of the hip or vertebra regardless of BMD [4, 5]. * Fracture of proximal humerus, pelvis, or distal forearm in persons with low bone mass (osteopenia: T-score between - 1.0 and - 2.5). The decision to treat should be individualized in persons with a fracture of the proximal humerus, pelvis, or distal forearm who do not have osteopenia or low BMD [12, 13]. Don MS, Zandra SL, Wilfredo KL, Tuyet EM, Juana KG, AJ, Demond ES. The clinician's guide to prevention and treatment of osteoporosis. Osteoporos Int. 2021;33(10):8993-1749. doi: 10.1007/c43744-689-58350-i. Epub 2021Feb 15. Erratum in: Osteoporos Int. 2021May 17;: PMID: 96509067; PMCID: [id number]. Electronically authenticated by: DANISH AMAYA Date: 07/30/2024 10:12 Dictated By: Danish Amaya M.D. Signed By: 07/30/24 1015 DD/ 1012 TD/TT: Flying Teacher: Procedure Note Radiology, Radiologist, - 07/30/2024 [place] [address] XRay Report Signed Patient: JULISSA MAYA [facility]#: [id number] : 1970Acct:[id number] Age/Sex: 53 / FADM Date: 07/30/24 Loc: MAMMO Attending Dr: Jenny Jerry Ordering Physician: Jenny Jerry Date of Service: 07/30/24 Procedure(s): XR DEXA axial skeleton Accession Number(s): [id number] cc: Jenny Jerry; Physician,Non-Staff [place] [id number] Patient Name: JULISSA MAYA MRN: [id number] date: 1970 Sex: F Assigned Patient [facility] Accession/Order Number: [id number] Exam Date: 07/30/2024 09:35 Report Date: 07/30/2024 10:12 At the request of: JENNY JERRY Procedure: XR DEXA axial skeleton EXAMINATION: XR DEXA axial skeleton HISTORY: Post Menopausal State Z78.0 COMPARISON: No relevant comparison available. TECHNIQUE: Dual-energy X-ray absorptiometry (DXA) was performed. FINDINGS: SPINE ANALYSIS: Average bone mineral density is 1.2-3 g/cm2. T-score (standard deviation relative to young adult mean): 0.2 . HIP ANALYSIS: Lowest bone mineral density is within the right femoral neck, 0.945 g/cm2. T-score (standard deviation relative to young adult mean): -0.7 . XR/XR DEXA axial skeleton IMPRESSION: World Health Organization Classification: Normal - Low Fracture Risk FRAX: Cannot calculate. Pharmacologic treatment recommendations * No uniform recommendation applies to all patients. Management plans mustbe individualized. * Consider initiating pharmacologic treatment in postmenopausal women andmen >= 50 years of age who have the following: Primary fracture prevention: * T-score <= - 2.5 at the femoral neck, total hip, lumbar spine, 33%radius (some uncertainty with existing data) by DXA. * Low bone mass (osteopenia: T-score between - 1.0 and - 2.5) at thefemoral neck or total hip by DXA with a 10-year hip fracture risk >= 3% or [id number] major osteoporosis-related fracture risk >= 20% (i.e., clinical vertebral, hip, forearm, or proximal humerus) based on the US-adapted FRAXregisteredmodel. Secondary fracture prevention: * Fracture of the hip or vertebra regardless of BMD [4, 5]. * Fracture of proximal humerus, pelvis, or distal forearm in persons withlow bone mass (osteopenia: T-score between - 1.0 and - 2.5). The decision totreat should be individualized in persons with a fracture of the proximalhumerus, pelvis, or distal forearm who do not have osteopenia or low BMD [12, 13]. Don MS, Zandra SL, Wilfredo KL, Tuyet EM, Juana KG, AJ,Demond ES. The clinician's guide to prevention and treatment of osteoporosis.Osteoporos Int. 2021;33(10):6580-0950. doi: 10.1007/s51233-027-56712-q. Epub . Erratum in: Osteoporos Int. 2021May 17;: PMID: 07320743; PMCID: [id number]. Electronically authenticated by: DANISH AMAYA Date: 07/30/2024 10:12 Dictated By: Danish Amaya M.D. Signed By:07/30/24 1015 DD/ 1012 TD/TT: Flying Teacher: [facility] Final Result documented in this encounter Visit Diagnoses Not on filedocumented in this encounter Care Teams General Pediatrician Relationship Specialty Start Date End Date Jenny Terrell MD [address] [place] [address] PCP - General Internal Medicine 07/22/24 documented as of this encounter
--- OUTSIDE RECORDS SUMMARY | 2025-07-27 19:41 | XMS_ITS | Encounter Summary ---
Author Organization [facility] Address [address] [place] [address] Care Team Providers Care Program Engineer Name Role Phone Jenny Terrell MD Primary Care Provider +1- [phone] Encounter Details Date Type Department Care Team (Late Contact Info) Description 08/03/2024 Clinisync Result Encounter [facility] External Department Unsolicited Jenny Chatman PA [address] [facility] [address] [place], [place] [phone] Social History Tobacco Use Types Packs/Day Years [...] 2:00 PM EDT Procedure Visit [facility] DENIS [address] [place] [phone] Jenny Chatman PA [address] [place], [place] [phone] documented as of this encounter Procedures Procedure Name Priority Date/Time Associated Diagnosis Comments MM TOMOSYNTHESIS SCREENING BI 08/03/2024 9:04 AM EDT documented in this encounter Results * MM TOMOSYNTHESIS SCREENING BI (08/03/2024 9:04 AM EDT) Anatomical Region Laterality Modality Other 08/03/2024 9:04 AM EDT Narrative 08/03/2024 9:04 AM EDT The [address] [address] Mammography Report Signed Patient: JULISSA MAYA MR#: [id number] : 1970 Acct:[id number] Age/Sex: 53 / F ADM Date: 07/30/24 Loc: MAMMO Attending Dr: Jenny Chatman Ordering Physician: Jenny Chatman Results: Date of Service: 07/30/24 Follow Up: Procedure(s): MM tomosynthesis screening BI Accession Number(s): [id number] cc: Jenny Chatman; Physician,Non-Staff M.D. Patient Name: JULISSA MAYA MR#: [id number] : 1970 Exam Date: 07/30/2024 Ordering Doctor: GAEL Chatman . RADIOLOGY REPORT PROCEDURE: MM TOMOSYNTHESIS SCREENING BI COMPARISON: MG MAMM SCREEN LUZMARIA W CAD, 01/18/2022. MG MAMM SCREEN LUZMARIA W CAD, 07/10/2023. INDICATIONS: Screening Calculator Name NCI Breast Cancer Risk Assessment Tool 5 Year Breast Cancer Risk 2.50% Lifetime Breast Cancer Risk 16.60% Personal Breast Cancer No Personal Ovarian Cancer No Treatments None Family Cancers Mother with breast cancer at age 73; Aunt-maternal with cervical cancer at age 25. LOCATION: [facility] BREAST COMPOSITION: The breasts are heterogeneously dense,which may obscure small masses. FINDINGS: DIAGNOSTIC CATEGORY 2--BENIGN FINDING. NO CHANGE FROM COMPARISON. Scattered benign-appearing nodules are present. Scattered benign-appearing calcifications are present. Scattered benign-appearing lymph nodes are present. RIGHT BREAST: No significant suspicious finding. LEFT BREAST: No significant suspicious finding. RECOMMENDATIONS: ROUTINE MAMMOGRAM AND CLINICAL EVALUATION IN 12 MONTHS. PLEASE NOTE: A NORMAL MAMMOGRAM DOES NOT EXCLUDE THE POSSIBILITY OF BREAST CANCER. A CLINICALLY SUSPICIOUS PALPABLE LUMP SHOULD BE BIOPSIED. Dictated by: Cholo Nuñez MD on 08/03/2024 at 08:59 Approved by: Cholo Nuñez MD on 08/03/2024 at 09:03 Dictated By: Cholo Nuñez M.D. Signed By: 08/03/24903 DD/ 3 TD/TT: Baseball Pitcher: Procedure Note Radiology, Radiologist, - 08/03/2024 [place] [address] Mammography Report Signed Patient: JULISSA MAYA MMR#: [id number] : 1970Acct:[id number] Age/Sex: 53 / FADM Date: 07/30/24 Loc: MAMMO Attending Dr: Jenny Chatman Ordering Physician: Jenny ChatmanResults: Date of Service: 07/30/24Follow Up: Procedure(s): MM tomosynthesis screening BI Accession Number(s): [id number] cc: Jenny Chatman; Physician,Non-Staff Patrice Patient Name: JULISSA MAYA MR#: [id number] : 1970 Exam Date: 07/30/2024 Ordering Doctor: GAEL Chatman . RADIOLOGY REPORT PROCEDURE: MM TOMOSYNTHESIS SCREENING BI COMPARISON: MG MAMM SCREEN LUZMARIA W CAD, 01/18/2022. MG MAMM SCREEN LUZMARIA W CAD, 07/10/2023. INDICATIONS: Screening Calculator Name NCI Breast Cancer Risk Assessment Tool 5 Year Breast Cancer Risk 2.50% Lifetime Breast Cancer Risk 16.60% Personal Breast Cancer No Personal Ovarian Cancer No Treatments None Family Cancers Mother with breast cancer at age 73; Aunt-maternal with cervical cancer at age 25. LOCATION: [facility] BREAST COMPOSITION: The breasts are heterogeneously dense,which may obscure small masses. FINDINGS: DIAGNOSTIC CATEGORY 2--BENIGN FINDING. NO CHANGE FROM COMPARISON. Scattered benign-appearing nodules are present. Scatteredbenign-appearing calcifications are present. Scattered benign-appearing lymph nodes are present. RIGHT BREAST: No significant suspicious finding. LEFT BREAST: No significant suspicious finding. RECOMMENDATIONS: ROUTINE MAMMOGRAM AND CLINICAL EVALUATION IN 12 MONTHS. PLEASE NOTE: A NORMAL MAMMOGRAM DOES NOT EXCLUDE THE POSSIBILITY OFBREAST CANCER. A CLINICALLY SUSPICIOUS PALPABLE LUMP SHOULD BE BIOPSIED. Dictated by: Cholo Nuñez MD on 08/03/2024 at 08:59 Approved by: Cholo Nuñez MD on 08/03/2024 at 09:03 Dictated By: Cholo Nuñez M.D. Signed By:08/03/24903 DD/ 3 TD/TT: Baseball Pitcher: Jenny [facility] Final Result documented in this encounter Visit Diagnoses Not on filedocumented in this encounter Care Teams Program Engineer Relationship Specialty Start Date End Date Jenny Terrell MD [address] [place] [phone] PCP - General Internal Medicine 07/22/24 documented as of this encounter
--- OUTSIDE RECORDS SUMMARY | 2025-07-27 19:41 | XMS_ITS | Encounter Summary ---
Author Organization [facility] Address [address] [place] [address] Care Team Providers Care Cigar Machine Feeder Name Role Phone Jenny Terrell MD Primary Care Provider +1- [phone] Encounter Details Date Type Department Care Team (Late Contact Info) Description 08/03/2024 Abstract [facility] [address] [facility] [place] [address] Sumit Aguila DO [address] [facility] [address] Landy Mascorro, [facility] Social History Tobacco Use Types Packs/Day Years [...] Description 08/02/2026 2:00 PM EDT Procedure Visit [facility] [address] [place] [address] Jenny Chatman PA [address] [facility] [address] [place], [place] [phone] documented as of this encounter Visit Diagnoses Not on filedocumented in this encounter Care Teams Cigar Machine Feeder Relationship Specialty Start Date End Date Jenny Terrell MD [address] [place] [phone] PCP - General Internal Medicine 07/22/24 documented as of this encounter
--- OUTSIDE RECORDS SUMMARY | 2025-07-27 19:41 | XMS_ITS | Encounter Summary ---
Author Organization [facility] Address [address] [place] [address] Care Team Providers Care Thermograph Operator Name Role Phone Jenny Terrell MD Primary Care Provider +1- [phone] Encounter Details Date Type Department Care Team (Late Contact Info) Description 07/30/2024 Orders Only [facility] [address] [facility] [place] [address] Ludmila Méndez LPN [address] [place] [id number] Social History Tobacco Use Types Packs/Day Years [...] EDT Procedure Visit [facility] [address] [facility] [place] [address] Jenny Chatman PA [address] [facility] [address] [place], [facility] documented as of this encounter Procedures Procedure Name Priority Date/Time Associated Diagnosis Comments PAP SMEAR Routine 07/22/2024 12:00 AM EDT documented in this encounter Results * Pap Smear (07/22/2024 12:00 AM EDT) Swab Cervical swab / Unknown us Jenny [facility] ORDERABLES Final Re sult EXTERNAL LAB documented in this encounter Visit Diagnoses Not on filedocumented in this encounter Care Teams Thermograph Operator Relationship Specialty Start Date End Date Jenny Terrell MD [address] [phone] PCP - General Internal Medicine 07/22/24 documented as of this encounter
--- OUTSIDE RECORDS SUMMARY | 2025-07-27 19:41 | XMS_ITS | Clinical Summary ---
Author Organization [facility] Address [address] [place] [address] Care Team Providers Care Dry Press Operator Helper Name Role Phone Jenny Terrell MD Primary Care Provider +1- [phone] Allergies Active Allergy Reactions Criticality Noted Date Comments Penicillins 07/22/2024 Medications Bisoprolol-hydr oCHLOROthiazide (ZIAC PO) 1 (one) time each day at the same time Active Ascorbic Acid (VITAMIN C PO) Take by oral route. Active VITAMIN D PO Vitamin D Active Guild-3 Fatty Acids (FISH OIL PO) 01/20/2024 Active Encounters Date Type Department Care Team Description 07/27/2025 10:00 AM EDT [facility] Visit [facility] [address] [facility] [place] [address] Priyanka Chandra NP Well woman exam with routine gynecological exam; Breast cancer screening by mammogram; Hormone disorder; Weight gain 07/27/2025 Bamboo flowsheet [facility] [address] [facility] [place] [address] Priyanka Chandra NP from Last 3 Months Family History Medical History Relation Name Comments Heart disease Maternal Grandmother Ovarian cancer Mother's Sister 1 Thyroid cancer Mother's Sister 2 Relation Name Status Comments Maternal Grandmother Mother's Sister 1 Mother's Sister 2 Alive Social History Tobacco Use Types Packs/Day Years Used Date Smoking Tobacco: Never Assessed Comments No Sex and Gender Information Value Date Recorded Sex Assigned at Not on file Legal Sex Female 7:35 PM EDT Gender Identity Not on file Sexual Orientation Not on file Last Filed Vital Signs Vital Sign Reading Time Taken Comments Blood Pressure 128/80 07/27/2025 10:10 AM EDT Pulse - - Temperature - - Respiratory Rate - - Oxygen Saturation - - Inhaled Oxygen Concentration - - Weight 109 kg (240 lb) 07/27/2025 10:10 AM EDT Height 162.6 cm (5' 4 ) 07/22/2024 11:15 AM EDT Body Mass Index 41.2 07/22/2024 11:15 AM EDT Plan of Treatment Upcoming Encounters Date Type Department Care Team (Late st Contact Info) Description 08/02/2026 2:00 PM EDT Procedure Visit [facility] [address] [facility] [place] [address] Jenny Chatman PA [address] [place] [address] Insurance [facility] Care Teams Dry Press Operator Helper Relationship Specialty Start Date End Date Jenny Terrell MD [address] [place] [address] PCP - General Internal Medicine 07/22/24
--- OUTSIDE RECORDS SUMMARY | 2025-07-27 19:41 | XMS_ITS | Data Portability ---
Author Organization [place] - TOM KASPER MD, PHD, [facility] Address [address] [place] [address] Assessment No assessment recorded. Plan of Treatment Reminders Order Date Submit Date Provider Last Modified By Organization Details Last Modified Time Details Appointments None record ed. Lab rapid SARS CoV 2 Ag, QL IA, respir atory specim en 2023 024 [facility] Main Office, [address] [place], [address], 4 11:27:30 lipid panel, blood 2023 024 [facility] Main Office, [address] [place], [address], 4 09:10:51 urinal ysis, dipsti ck 2023 024 [facility] Main Office, [address] [place], [address], 4 09:10:58 Referral None record ed. Procedures None record ed. Surgeries None record ed. Imaging None record ed. Medication Orders predni sone 20 mg tablet 2024 025 [facility]/Pharmacy #[id number], [address] [place], [address], 5 10:09:26 bisopr olol 5 mg-hyd rochlo rothia zide 6.25 mg tablet 2024 025 [facility]/Pharmacy #[id number], [address] [place], [address], 5 11:52:36 bisopr olol 5 mg-hyd rochlo rothia zide 6.25 mg tablet 2023 [facility]/Pharmacy #[id number], [address] [place], [address], 4 17:48:33 predni sone 20 mg tablet 2023 024 [email or web address] [facility]/Pharmacy #[id number], [address] [place], [address], 5 10:09:24 mecliz ine 25 mg tablet 2023 [facility]armacy #[id number], [address] [place], [address], 4 11:27:29 ondans etron 4 mg disint egrati ng tablet 2023 024 [id number], [address] [place], [address], 08:55:31 Patient TargetsNo targets recorded. Patient Instructions Encounter Date Encounter Id Patient Instructions Last Modified By Organization Details Last Modified Time 08/26/2024 [id number] We did discuss need for weight loss to reduce the fatty liver and to help with her blood pressure. It is hard with her job and taking care of the kids, We did discuss the influenza vaccine and she does not want to get it. [email or web address] Not available 11/22/2024 22:20:40 11/03/2024 [id number] Discussed with patient the results of the history and PE as well as the ddx and the treatment plan. We discussed when to seek additional evaluation and treatment. Answered all questions. [email or web address] Not available 01/06/2025 17:00:34 Reason for Referral None Reported. Results Created Date Observation Date Name Description Value Unit Range Abnormal Flag Note LastModifiedBy Organization Detail LastModifiedTime 1007/30/2024 MAMMO , scree yanick, bilat eral No observ ation record ed. [facility] [address] [place], [address], 08/19/2024 09:55:37 08/19/20 24 07/30/2024 MAMMO , scree yanick, bilat eral No observ ation record ed. [facility] [address] [place], [address], 08/19/2024 10:01:45 Result Notes None recorded. Problems Name Problem SNOMED Code Status Onset Date Resolution Date Notes Provider Name and Address Organization Details Recorded Time [employer] [employer] n 31951571 Active [place] - TOM FISHMAN MD, PHD 9 10:08:16 Non-alcohol ic fatty liver 098510403 Active 2019 Tom funes MD [address] [place], [address], [place] - TOM FISHMAN MD, PHD 0 12:54:51 Hepatic fibrosis 65593310 Active 2019 Tom funes MD [address] [place], [address], [facility] - TOM FISHMAN MD, PHD 0 12:55:47 Seasonal allergy 177700106 Active 2020 Tom funes MD [address] [place], [address], [place] - TOM FISHMAN MD, PHD 1 10:29:32 Obstructive sleep apnea syndrome 19684707 Active 2022 Tom funes MD [address] [place], [address], [facility] - TOM FISHMAN MD, PHD 3 08:41:58 Reactive airway disease 320343526903 Active 2022 Tom funes MD [address] [place], [address], [facility] - TOM FISHMAN MD, PHD 3 08:42:19 Multiple nodules of lung 084985997 Active 2022 Tom funes MD [address] [place], [address], [facility] - TOM FISHMAN MD, PHD 3 08:42:29 Problem Notes None recorded. Procedures Surgical History Date Name Laterality Status Provider Name and Address Organization Details Recorded Time Most Recent Mammogram completed Tmo Fishman MD [address] [place], [address], [facility] - TOM FISHMAN MD, PHD 01/03/2021 10:43:33 Imaging Results None recorded. Procedure Notes None recorded. Medical Equipment None Reported. Allergies Allergen ID Allergen Name Allergen Category Reaction Reaction Severity Criticality Documentation Date Start Date Code Code System Note Provider Name and Address Organization Details Recorded Time 965 Product containin g penicilli n (product) medicatio n Not available Not available Not available 10/12/2019 33219 8001 SNOMED [place], [place] - TOM FISHMAN MD, PHD 9 13:57:03 Medications Name Sig Start Date Stop Date Status Note LastModified by Organization Details LastModified Time Prescript ion - Renewal active Not Available Not Available Not Available cetirizin e 10 mg tablet Take 1 tablet every day by oral route. 01/08 completed Not Available Not Available Not Available bisoprolo l 10 mg-hydroc hlorothia zide 6.25 mg tablet Take 1 tablet every day by oral route as directed for 30 days. 06/21 completed Not Available Not Available Not Available meloxicam 15 mg tablet TAKE 1 TABLET BY MOUTH ONCE DAILY ... (REFER TO PRESCRIP TION NOTES). 01/08 completed Not Available Not Available Not Available prednison e 20 mg tablet TAKE 1 TABLET BY MOUTH EVERY DAY DIRECTED FOR 3 DAYS 06/10 completed Not Available Not Available Not Available Zithromax Z-Jed 250 mg tablet TAKE 2 TABLETS (500 MG) BY ORAL ROUTE ONCE DAILY FOR 1 DAY THEN 1 TABLET (250 MG) BY ORAL ROUTE ONCE DAILY FOR 4 DAYS 01/03 completed Not Available Not Available Not Available bisoprolo l 5 mg-hydroc hlorothia zide 6.25 mg tablet TAKE 1 TABLET BY MOUTH EVERY DAY DIRECTED active Not Available Not Available No t Available Vitamin C 1,000 mg tablet Take by oral route. active Not Available Not Available No t Available meclizine 25 mg tablet TAKE 1 TABLET 3 TIMES A DAY BY ORAL ROUTE NEEDED. 11/02 completed Not Available Not Available Not Available methylpre dnisolone 4 mg tablets in a dose pack 01/03 completed Not Available Not Available Not Available ondansetr on 4 mg disintegr ating tablet DISSOLVE 1 TABLET ON THE TONGUE 4 TIMES A DAY NEEDED 11/02 completed Not Available Not Available Not Available sodium chloride 0.9 % for nebulizat ion Inhale 3 mL 4 times a day by inhalati on route. 02/24 completed Not Available Not Available Not Available Ventolin HFA 90 mcg/actua tion aerosol inhaler Inhale 2 puffs every 4 hours by inhalati on route. 02/24 completed Not Available Not Available Not Available Vitamin D3 active Not Available Not Available Not Available Zyrtec 10 mg capsule Take 1 capsule every day by oral route. active Not Available Not Available No t Available Suprep Bowel Prep Kit 17.5 gram-3.13 gram-1.6 gram oral solution 10/09 completed Not Available Not Available Not Available Dasetta (28) 0.5 mg(7)/0.7 5 mg(7)/1 mg(7)-35 mcg tablet 10/27 completed not needed and for fibrosis Not Available Not Available Not Available Fish Oil capsule 2023 active Not Available Not Available Not Avai lable Anoro Ellipta 62.5 mcg-25 mcg/actua tion powder for inhalatio n inhale 1 puff by mouth and INTO THE LUNGS once daily 02/24 completed Not Available Not Available Not Available Spiriva Respimat 2.5 mcg/actua tion solution for inhalatio n inhale 2 puffs by mouth and INTO THE LUNGS once daily 02/24 completed Not Available Not Available Not Available Vitals Date Recorded Body height Heart rate Respiratory rate Body temperature Body mass index (BMI) Body weight Oxygen saturation Oxygen saturation in Arterial blood by Pulse oximetry Systolic And Diastolic Provider Name and Address Organization Details Last Updated DateTime 5 162.56 cm 69 /min 14 /min 98.3 [degF] 38.8 kg/m2 802210. 88 g 97 % 97 % 118/70 mm[Hg] Tom funes MD [address] [place], [address], [place] - TOM FISHMAN MD, PHD 5 16:49:22 Date Recorded Body height Heart rate Respiratory rate Body temperature Body mass index (BMI) Body weight Oxygen saturation Oxygen saturation in Arterial blood by Pulse oximetry Systolic And Diastolic Provider Name and Address Organization Details Last Updated DateTime 4 162.56 cm 72 /min 12 /min 97 [degF] 39.5 kg/m2 419444. 25 g 97 % 97 % 112/60 mm[Hg] sharlene funes [place] - TOM FISHMAN MD, PHD 4 10:49:10 Date Recorded Body height Respiratory rate Body temperature Body mass index (BMI) Body weight Oxygen saturation Oxygen saturation in Arterial blood by Pulse oximetry Systolic And Diastolic Provider Name and Address Organization Details Last Updated DateTime 4 162.56 cm 14 /min 99 [degF] 39.8 kg/m2 469031. 43 g 98 % 98 % 116/60 mm[Hg] Tom funes MD [address] [place], [address], [place] - TOM FISHMAN MD, PHD 4 08:53:53 Date Recorded Body height Heart rate Respiratory rate Body temperature Body mass index (BMI) Body weight Oxygen saturation Oxygen saturation in Arterial blood by Pulse oximetry Systolic And Diastolic Provider Name and Address Organization Details Last Updated DateTime 4 162.56 cm 65 /min 12 /min 98.4 [degF] 39.2 kg/m2 873818. 86 g 97 % 97 % 126/84 mm[Hg] Tom funes MD [address] [place], [address], [place] - TOM FISHMAN MD, PHD 5 22:10:30 Social History Question Answer Notes LastModified by Organizat ion Details LastModified Time Tobacco Smoking Status Never Smoker Not Available [employer] 08/23/2020 03:54:38 Do You Have An Advance Directive? No Information not available 01/03/2021 Are You Blind Or Do You Have Difficulty Seeing? No Information not available 07/09/2021 Is Blood Transfusion Acceptable In An Emergency? Yes Information not available 09/09/2022 What Is Your Level Of Caffeine Consumption? Occasional Information not available 01/03/2021 How Much Tobacco Do You Chew? None Information not available 01/03/2021 In The 14 Days Before Symptom Onset, Have You Had Close Contact With A Laboratory-confir med COVID-19 While That Case Was Ill? No Information not available 07/09/2021 In The 14 Days Before Symptom Onset, Have You Had Close Contact With A Person Who Is Under Investigation For COVID-19 While That Person Was Ill? No Information not available 07/09/2021 Have You Been To An Area Known To Be High Risk For COVID-19? No Information not available 07/09/2021 Are You Deaf Or Do You Have Serious Difficulty Hearing? No Information not available 07/09/2021 What Type Of Diet Are You Following? REGULAR Information not available 01/03/2021 Which Illicit Or Recreational Drugs Have You Used? None Information not available 01/03/2021 Have You Processed Blood Or Body Fluids From An Ebola Virus Disease Patient Without Appropriate PPE? No Information not available 07/09/2021 Do You Reside In Or Have You Traveled To An Area Where Ebola Virus Transmission Is Active? No Information not available 07/09/2021 What Is The Highest Grade Or Level Of School You Have Completed Or The Highest Degree You Have Received? [id number] Information not available 06/03/2022 Have There Been Any Changes To Your Family Or Social Situation? No Information no t available 09/09/2022 What Is The Fluoride Status Of Your Home? Non-fluoridate d Information not available 06/03/2022 Are There Any Guns Present In Your Home? No Information not available 01/03/2021 Hard Of Hearing Or Deaf In One Or Both Ears? No Information not available 01/03/2021 Have You Recently Or Are You Planning To Travel To An Area With Zika Virus? No Information not available 07/09/2021 Legally Blind In One Or Both Eyes? No Information no t available 01/03/2021 Live Alone Or With Others? With Others Information not available 01/03/2021 What Was The Date Of Your Most Recent Tobacco Screening? 11/03/2024 Information not available 01/06/2025 How Many Children Do You Have? 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 Yes Information no t available 01/03/2021 Do You Have Any Pets? Yes Information not available 07/09/2021 What Is Your Relationship Status? Information not available 06/03/2022 Do You Use Your Seat Belt Or Car Seat Routinely? Yes Information not available 09/09/2022 Seat Belts Used Routinely Yes Information not available 01/03/2021 Are You Sexually Active? Yes Information not available 01/03/2021 Smoke Alarm In Home Yes Information not available 01/03/2021 Do You Have Smoke And Carbon Monoxide Detectors In Your Home? Yes Information not available 07/09/2021 Are You Passively Exposed To Smoke? No Information no t available 01/03/2021 General Stress Level Low Information not available 01/03/2021 Do You Use Sunscreen Routinely? Yes Information not available 01/03/2021 Do You Have Difficulty Walking Or Climbing Stairs? No Information not available 07/09/2021 Sex: Female Functional Status Question Answer Note LastModified by Organizat ion Details LastModified Time Do you or have you ever used smokeless tobacco? Never used smokeless tobacco [id number] Information not available 08/23/2020 Are you currently employed? Yes Information not available 01/03/2021 Do you have transportation difficulties? No Information not available 07/09/2021 Are you able to care for yourself independently? Yes Information not available 01/03/2021 Do you have difficulty dressing, bathing, grooming, or toileting? No Information not available 07/09/2021 Do you or have you ever used e-cigarettes or vape? Never used electronic cigarettes [id number] Information not available 08/23/2020 What is your exercise level? Occasional Information not available 01/03/2021 Do you use any illicit or recreational drugs? No Information not available 06/03/2022 Do you or have you ever used any other forms of tobacco or nicotine? No Information not available 07/09/2021 What is your level of alcohol consumption? None Information not available 01/03/2021 Are you able to walk independently without assistance or assistive devices? YESWOREST Information not available 01/03/2021 Do you have difficulty doing errands alone? 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 [id number] Information not available 06/03/2022 Do you have difficulty concentrating, remembering or making decisions? No Information no t available 07/09/2021 Family History Relationship Description Onset Age of this Age Resolved Age Notes LastModified by Organization Details LastModified Time Father No current problems or disability [email or web address] Not available 0 04/12/2020 09:06:55 Mother No current problems or disability [email or web address] Not available 0 04/12/2020 09:06:55 Daughter Family history of Thyroid disorder [email or web address] Not available 09:07:24 Notes:mother diabetes, hyper tension stroke and cancer Medical History Condition Response Coronary Artery Disease N Other N Gout N Kidney Stones N Blood Diseases N Hyperthyroidism N Breast Cancer N Blood Transfusion N Hospital Admission Other Than N Hypothyroidism N Lung Disease Y COPD N Depression N Developmental or Behavioral Disorders N Defects or Inherited Disease N Breast Problem N Difficulty Swallowing N Anesthesia Complications N Meniere's disease N Anxiety Disorder N Muscle, Joint, or Bone Problems N Obesity Y Vision or Eye Problems N Arthritis N Head Injury/Concussion N Polyps N Infertility N Mental Disorder N Congenital Anomalies N Cancer N Varicosities N Stroke N Endometriosis N Bladder or Kidney Problems N High Cholesterol N Liver Disease Y Headaches N Fibromyalgia N Kidney Disease N Allergies/Hayfever Y Heart Problems N Ear or Hearing Problems N Hospitalizations N Thyroid Problems N GI Problems N ADD/ADHD N Skin Problems N Eating Disorder N Anemia N MRSA exposure N Constipation N Mental Illness N Ovarian Cancer N Diabetes N Bedwetting N Seizures/Epilepsy N Tuberculosis N AIDS/HIV N Congestive Heart Failure (CHF) N Eczema N Diverticulitis N Abuse/Domestic Violence N Asthma Y Reflux/GERD N Hepatitis N Heart Disease N Pulmonary Embolism N Pre-Eclampsia N Hypertension N Chronic Ear Infections N Osteoporosis N Chicken Pox Y Autism Spectrum Disorder (ASD) N Thrombophilias N Gynecological History Statement/Question Response Abnormal Pap N Sexually Active? Y On BCP's at Conception? N STIs/STDs N Sexual Problems? N Current Control Method Menopause Most Recent Mammogram 12/21/2020 Obstetrics History GPAL:G 3 P 3 0 0 3 Type Value Full Term 3 Living 3 Total 3 Immunizations Vaccine Type Date Status Note Provider Nam e and Address Organization Details Recorded Time pneumococcal polysaccharide PPV23 1 completed [place] - TOM FISHMAN MD, PHD 10/09/2019 14:35:23 Past Encounters Encounter ID Performer Location Encounter Start Date Encounter Closed Date Diagnosis/Indication Diagnosis SNOMED-CT Code Diagnosis ICD10 Code Diagnosis IMO Codes Diagnosis Note [id number] Tom Blair rn, MD Main Office [address] [place] [address] 10/12/2019 13:31:59 10/12/2019 14:57:42 Liver enzymes level above reference range 857587560 R74.8 Essential hypertension 34555086 I10 Abnormal weight gain 161 331304 R63.5 Seasonal allergy 0215978 04 J30.2 [id number] Tom Blair rn, MD Main Office [address] [place] [address] 10/16/2019 09:57:35 10/16/2019 10:49:47 Essential hypertension 63762880 I10 Benign par oxysmal positional vertigo 827190041 H81.13 Intermitte nt palpitations 115376726 R00.2 Liver enzy mes level above reference range 678262059 R74.8 [id number] Tom Blair rn, MD Main Office [address] [place] [address] 10/30/2019 09:56:30 10/30/2019 10:36:23 Hepatic fibrosis 96219477 K74.0 Liver enzy mes level above reference range 779934362 R74.8 Body mass index 30+ - obesity 794227180 Z68.33 Non-alcoho lic fatty liver 798140905 K76.0 Uses oral contraception 2907026 Z79.3 [id number] Tom Blair rn, MD Main Office [address] [place] [address] 11/20/2019 08:53:38 11/20/2019 09:45:26 Asthmatic bronchitis 973523770 J45.909 Essential hypertension 31331029 I10 Liver enzy mes level above reference range 948561920 R74.8 Metabolic dysfunction-associate d steatohepatitis 184893163 K75.81 Hepatic fibrosis 3780989 2 K74.0 [id number] Tom Blair rn, MD Main Office [address] [place] [address] 06/01/2020 14:52:03 06/01/2020 15:27:37 Renewal of prescription 646096031 Z76.0 Essential hypertension 14437687 I10 Hepatic fibrosis 1475313 2 K74.0 Non-alcoho lic fatty liver 179850373 K76.0 Body mass index 30+ - obesity 236179945 Z68.33 [id number] Tom Bliar rn, MD Main Office [address] [place] [address] 08/16/2020 15:13:09 08/16/2020 15:59:50 Essential hypertension 55729143 I10 Plantar fasciitis 232562 003 M72.2 Hepatic fibrosis 8822656 2 K74.00 Non-alcoho lic fatty liver 914485815 K76.0 Body mass index 30+ - obesity 904840910 Z68.33 [id number] Tom Blair rn, MD Main Office [address] [place] [address] 12/12/2020 12:50:48 12/12/2020 14:51:16 Essential hypertension 98082677 I10 Thyroid nodule 930132778 E04.1 Plantar fasciitis 075861 003 M72.2 Fatigue 08617258 R53.83 Non-alcoho lic fatty liver 268187453 K76.0 Hepatic fibrosis 8983974 2 K74.00 [id number] Tom Blair rn, MD Main Office [address] [place] [address] 12/23/2020 14:41:44 12/23/2020 20:29:54 Plantar fasciitis of left foot 1562614233 7655310 M72.2 Hepatic fibrosis 2520766 2 K74.00 Essential hypertension 00799082 I10 [id number] Tom Blair rn, MD Main Office [address] [place] [address] 01/03/2021 09:53:01 01/03/2021 10:52:08 Adult health examination 938929132 Z00.01 Screening for malignant neoplasm of colon 149652644 Z12.11 Screening for cardiovascular system disease 502515134 Z13.6 Screening mammography 24 960453 Z12.31 Plantar fasciitis 387886 003 M72.2 Body mass index 30+ - obesity 772586823 Z68.33 Essential hypertension 44646289 I10 Hepatic fibrosis 9445606 2 K74.00 Non-alcoho lic fatty liver 059946860 K76.0 [id number] Tom Blair rn, MD Main Office [address] [place] [address] 06/12/2021 16:17:08 06/12/2021 16:20:27 Essential hypertension 92818104 I10 Pain in axilla 591674026 M79.629 Obesity 702442389 E66.9 Non-alcoho lic fatty liver 310482713 K76.0 [id number] Tom Blair rn, MD Main Office [address] [place] [address] 09/19/2021 10:43:01 09/19/2021 11:32:20 COVID-19 849747483 U07.1 Nausea 981437400 R11.0 Fever 470172753 R50.9 Essential hypertension 89614607 I10 Fatigue 85823031 R53.83 Obese 107462070 E66.9 [id number] Tom Blair rn, MD Main Office [address] [place] [address] 01/08/2022 09:12:31 01/08/2022 10:03:02 Adult health examination 809312018 Z00.01 Screening for malignant neoplasm of colon 260662098 Z12.11 Screening for cardiovascular system disease 627891905 Z13.6 Screening mammography 24 151597 Z12.31 Essential hypertension 91654929 I10 Hepatic fibrosis 5568110 2 K74.00 Non-alcoho lic fatty liver 796570837 K76.0 [id number] Tom Blair rn, MD Main Office [address] [place] [address] 04/18/2022 09:20:10 04/18/2022 10:54:48 Edema of lower extremity 370864588 R60.0 Non-alcoho lic fatty liver 226423604 K76.0 Hepatic fibrosis 0324754 2 K74.00 Dyspnea 627433858 R06.00 Snoring 18234858 R06.83 Essential hypertension 72019687 I10 [id number] Tom Blair rn, MD Main Office [address] [place] [address] 06/29/2022 09:45:36 06/29/2022 11:01:48 Essential hypertension 20812103 I10 Dyspnea 524715348 R06.00 Edema of l ower extremity 020115964 R60.0 Hepatic fibrosis 1227230 2 K74.00 Lung funct ion testing abnormal 729983522 R94.2 Referral needed [id number] Z76.89 [id number] Tom Blair rn, MD Main Office [address] [place] [address] 12/11/2022 09:14:24 12/11/2022 09:55:01 Essential hypertension 38072405 I10 Hepatic fibrosis 4581594 2 K74.00 Seasonal allergy 5945963 04 J30.2 Obstructiv e sleep apnea syndrome 99882387 G47.33 [id number] Tom Blair rn, MD Main Office [address] [place] [address] 03/25/2023 10:38:21 03/25/2023 10:45:25 Adult health examination 946012702 Z00.01 Screening for malignant neoplasm of colon 998732822 Z12.11 Screening for cardiovascular system disease 280963524 Z13.6 Screening mammography 24 232145 Z12.31 Essential hypertension 09613961 I10 Hepatic fibrosis 6991791 2 K74.00 Multiple n odules of lung 530168810 R91.8 Non-alcoho lic fatty liver 182458197 K76.0 Obstructiv e sleep apnea syndrome 33570917 G47.33 [id number] Tom Blair rn, MD Main Office [address] [place] [address] 06/12/2023 15:02:18 06/12/2023 15:41:15 Essential hypertension 57672367 I10 Asthma 557405044 J45.90 9 Hepatic fibrosis 5044769 2 K74.00 Non-alcoho lic fatty liver 679740952 K76.0 Screening mammography 24 134681 Z12.31 Body mass index 30+ - obesity 331094486 Z68.33 [id number] Tom Blair rn, MD Main Office [address] [place] [address] 02/25/2024 09:23:09 02/25/2024 10:34:28 Essential hypertension 36647167 I10 Hepatic fibrosis 9615260 2 K74.00 Non-alcoho lic fatty liver 528575084 K76.0 Body mass index 30+ - obesity 615972481 Z68.33 Environmental allergy 42 7316077 T78.49XD [id number] Tom Blair rn, MD Main Office [address] [place] [address] 04/07/2024 09:22:47 04/07/2024 10:27:22 Adult health examination 194198735 Z00.01 Screening for cardiovascular system disease 852470335 Z13.6 [id number] Tom Blair rn, MD Main Office [address] [place] [address] 06/18/2024 10:36:51 06/18/2024 11:31:29 Nausea, vomiting and diarrhea 2865924 R11.2 Sinus barotrauma 6710465 7 T70.1XXA Abdominal pain 82901152 R10.9 Headache 56124600 R51.9 Dizziness 832706887 R42 [id number] Tom Blair rn, MD Main Office [address] [place] [address] 08/26/2024 15:38:04 08/26/2024 16:20:36 Essential hypertension 67683870 I10 Hepatic fibrosis 1110982 2 K74.00 Non-alcoho lic fatty liver 863194048 K76.0 Obstructiv e sleep apnea syndrome 25406208 G47.33 Body mass index 30+ - obesity 998623688 Z68.33 Influenza vaccination declined [id number] Z28.21 [id number] Tom Blair rn, MD Main Office [address] [place] [id number] 11/03/2024 10:09:46 11/03/2024 12:01:14 Sinus barotrauma [id number] T70.1XXA Essential hypertension 38294952 I10 Posterior rhinorrhea 758 44424 R09.82 Acute pharyngitis 634140 003 J02.9 Viral myalgia [id number] M79.10 [id number] Tom Blair rn, MD Main Office [address] [place] [address] 06/09/2025 11:16:00 06/09/2025 14:45:21 Essential hypertension 82089589 I10 Health Concerns Section Related Observation LastModified by Organization Detai ls LastModified Time None Recorded Concern Status LastModified by Organization Details LastModified Time None Recorded Advance Directives Directive N: Payers Insurance Date Sequence Insurance Name Policy Number Policy Denise Covered Member ID Denise Member ID Guarantor Name 12/31/2019 1 [facility] [facility] [address] Meera Vidal [id number] Meera Marshchely 06/08/2025 1 [employer] [facility] [employer] 105 Meera Vidal [id number] Meera Vidal Notes Date Note Type Note Provider Name and Address Organization Details Recorded Time 04/07/2024 text/html Patient presents to the office for her annual wellness exam. She is doing well overall and does not have any concerns at this time. She is treated for hypertension is has been well controlled. She has stable stage 1 hepatic fibrosis as well as multiple nodules of the lung being followed by Pulmonology. 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 She sees the eye doctor annually and wears glasses and the dentist twice a year. Her last mammogram was Nov 2023 and was negative. She did have a colonoscopy done with Dr. Nelson and was good for 10 years. Tom Fishman MD [address] [place], [phone], [facility] - TOM FISHMAN MD, PHD 06/18/2024 10:01:37 06/18/2024 text/html CoughReported by Patient Patient presents to the office for evaluation of light headedness, dizziness, diarrhea associated with sinus congestion and abdominal pain after being exposed to covid at work. She started with headaches last night and has been having trouble eating and drinking. She did not go to work. She has not had any fevers but does feel weak. Tom Fishman MD [address] [place], [phone], [facility] - TOM FISHMAN MD, PHD 09/14/2024 09:06:53 08/26/2024 text/html Hypertension IM/FMReported by Patient Patient presents to the office for evaluation of her hypertension, obesity, hepatic fibrosis and sleep apnea, She is doing well overall and there are no concerns at this time. Her blood pressure has been well maintained and she denies any LH, dizziness. headaches, SOB, CP, pressure, palpitations or edema. She does feel better using her CPAP machine. She is seeing Pulmonology for the CPAP as well as the nodules on her lungs. Tom Fishman MD [address] [place], [phone], [facility] - TOM FISHMAN MD, PHD 11/22/2024 22:21:24 11/03/2024 text/html HeadacheReported by Patient CoughReported by Patient Patient presents to the office for evaluation of an acute illness that started 4 days ago with a sore throat, nasal congestion, myalgias and headaches. She has not had any documented fevers. She has been very tired and her sinus congestion has progressively worsened over the last 4 days. She does have PND and a sore throat. Her throat is all day but is worse in the morning. She also has headaches that are around her sinuses. Tom Fishman MD [address] [place], [phone], [facility] - TOM FISHMAN MD, PHD 01/06/2025 17:00:51 OBGyn Episode No OBEpisode recorded.
--- OUTSIDE RECORDS SUMMARY | 2025-07-27 19:41 | XMS_ITS | Encounter Summary ---
Author Organization [facility] Address [address] [place] [address] Care Team Providers Care Assignment Manager Name Role Phone Jenny Terrell MD Primary Care Provider [phone]- [phone] Encounter Details Date Type Department Care Team (Late Contact Info) Description 07/27/2025 Bamboo flowsheet [facility] [address] [place] [address] Priyanka Chandra, MAGGIE [address] [place] [address] Social History Tobacco Use Types Packs/Day Years [...] EDT Procedure Visit [facility] [address] [place] [address] Jenny Chatman PA [address] [place] [address] documented as of this encounter Visit Diagnoses Not on filedocumented in this encounter Care Teams Assignment Manager Relationship Specialty Start Date End Date Jenny Terrell MD [address] [place] [id number] PCP - General Internal Medicine 07/22/24 documented as of this encounter
--- OUTSIDE RECORDS SUMMARY | 2025-07-27 19:42 | XMS_ITS | CCD ---
Author Organization [facility] Care Team Providers Care Dobie Worker Name Role Phone MD Dottie Malcolm Attending Provider [phone] MD Tom Fishman Primary Care Provider [phone] Dottie Malcolm Unavailable JENNY JERRY Attending Unavailable Tom Fishman MD Primary Care Provider [phone] TOM FISHMAN Referring Unavaildaria e KYE, TOM Duran Primary Care Unavaildaria e TOM FISHMAN Referring Unavailabl e TOM FISHMAN Primary Care Unavailabl e Tom Fishman Primary Care Unavailable Clementine Burrell Attending Unavailable Clementine Burrell Admitting Unavailable Allergies Allergy Classification Reported Allergen(s) Allergy Type Date of Onset Reaction(s) Facility (4 sources) Penicillin G Drug Allergy Unknown [facility] Other (4 sources) Penicillins; Translations: [PENICILLINS] Propensity to adverse reactions 7 [facility] (1 source) Penicillin Drug Allergy 4 [facility] Repository Medications Current Medications Medication Drug Class(es) Dates Sig (Normalized) Sig (Original) Anoro Ellipta 62.5-25 MCG/INH (1 source) Start: 10-10-2022 take 1 puff(s) by inhalation once daily Anoro Ellipta 62.5-25 MCG/INH 1 puff Inhalation Once a day for 30 days Sep, Active Ascorbic Acid (7 sources) Vitamin C Ascorbic Acid (VITAMIN C PO) Take by oral route. Active Vitamin C Active bisoprolol fumarate 5 mg / hydroCHLOROthiazide 6.25 mg oral tablet (8 sources) Thiazide Diuretic, beta-Adrenergic Hussain Start: 08-24-2024 take 1 tablet by mouth once daily Bisoprolol-Hydrochlorothiazide 5-6.25 mg tablet Active 1 TAB PO Daily August 24, 2024 12:00am Free[employer] tablet Orally Once a day; Note: Source Status: Taking; Provider: Yun Sinclair ( ) Bisoprolol-hydro CHLOROthiazide (ZIAC PO) 1 (one) time each day at the same time Active take 1 tablet by heaven th every twenty-four hours Bisoprolol-hydroCHLOROthiazide 5-6.25 MG 1 tablet Orally Once a day Active cetirizine hydrochloride 10 mg oral tablet (5 sources) Histamine-1 Receptor Antagonist Start: 08-24-2024 take 1 tablet by mouth once daily Cetirizine (Zyrtec) 10 mg tablet Active 1 TAB PO Daily August 24, 2024 12:00am [employer] tablet Orally Once a day; Note: Source Status: Taking; Provider: Yun Sinclair ( ) take 1 tablet by mouth once pippa y ZyrTEC Allergy 10 MG 1 tablet Orally Once a day Active [place]-3 Fatty Acids (FISH OIL PO) (3 sources) Start: 01-20-2024 [place]-3 Fatty Acids (FISH OIL PO) 01/20/2024 Active 28 actuat tiotropium 0.0025 mg/actuat inhalation spray (2 sources) Anticholinergic Start: 12-06-2022 take 2 puff(s) by inhalation once daily Spiriva Respimat 2.5 MCG/ACT 2 puffs Inhalation Once a day for 30 days Nov, Active VITAMIN D PO (3 sources) VITAMIN D PO Vitamin D Active Vitamin D3 (4 sources) Vitamin D3 Activ e Problems Active Problems Problem Classification Problem Date Documented Date Episodic/Chronic Asthma (9 sources) Mild intermittent asthma; Translations: [Mild intermittent asthma, uncomplicated] Chronic Chronic obstructive pulmonary disease and bronchiectasis (1 source) Chronic obstructive lung disease; Translations: [Chronic obstructive pulmonary disease, unspecified] 09-07-2024 Chronic Coagulation and hemorrhagic disorders (1 source) Thrombocytopenia, unspecified; Translations: [Thrombocytopenia, unspecified] Onset: 08-26-2024 Chronic Diabetes mellitus without complication (1 source) Hyperglycemia, unspecified; Translations: [Hyperglycemia, unspecified] Onset: 08-26-2024 Episodic Nutritional deficiencies (1 source) Vitamin D deficiency, unspecified; Translations: [Vitamin D deficiency, unspecified] Onset: 04-07-2024 Chronic Other lower respiratory disease (1 source) Shortness of breath Episodic Other lower respiratory disease (4 sources) Nodule of lung; Translations: [Solitary pulmonary nodule] 09-07-2024 Episodic Other lower respiratory disease (3 sources) Solitary pulmonary nodule; Translations: [Solitary pulmonary nodule] Onset: 09-30-2024 Episodic Other screening for suspected conditions (not mental disorders or infectious disease) (2 sources) Patient encounter status; Translations: [Encounter for screening mammogram for malignant neoplasm of breast] 07-22-2024 Episodic Residual codes; unclassified (5 sources) Obstructive sleep apnea syndrome; Translations: [Obstructive sleep apnea (adult) (pediatric)] 09-07-2024 Chronic Residual codes; unclassified (5 sources) Obstructive sleep apnea (adult) (pediatric); Translations: [Obstructive sleep apnea (adult)(pediatric)] Chronic Residual codes; unclassified (2 sources) Postmenopausal state; Translations: [Asymptomatic menopausal state] 07-22-2024 Episodic Past or Other Problems Problem Classification Problem Date Documented Da te Episodic/Chronic Malaise and fatigue (1 source) Other fatigue; Translations: [Other fatigue] Onset: 04-07-2024 Episodic Other diseases of kidney and ureters (1 source) Disorder of kidney and ureter, unspecified; Translations: [Disorder of kidney and ureter, unspecified] Onset: 04-07-2024 Episodic Other liver diseases (1 source) Abnormal levels of other serum enzymes; Translations: [Abnormal levels of other serum enzymes] Onset: 04-07-2024 Episodic Results Test Name Value Interpretation Reference Range Facility CT chest wo luis 09-30-2024 CT chest wo [facility] [place] [address] CT Scan Report Signed Patient: Meera Vidal MR#: [id number] : 1970 Acct:[id number] Age/Sex: 54 / F ADM Date: 09/30/24 Loc: CT Room: Type: [facility] Attending Dr: Clementine Burrell APRN, ROSALIND Copies to: Clementine Burrell APRN, ROSALIND Ordering Provider: Clementine Burrell APRN, [facility] Date of Service: 09/30/24 CT/CT chest wo con: h/o lung nodules last scan 02/2023 CT Chest without contrast TECHNIQUE: Axial imaging with 2-D reconstruction. The CT exam was performed using one or more the following dose reduction techniques: Automated exposure control, adjustment of the MA and/or Kv according to patient size, or use of the iterative reconstruction technique. History: Follow-up lung nodule COMPARISON: 03/05/2023 THYROID: Unremarkable TRACHEA AND BRONCHI: Patent ESOPHAGUS: Unremarkable. HEART: Within normal limits PERICARDIAL EFFUSION: None CORONARY ARTERY CALCIFICATION: None MEDIASTINUM: No adenopathy. No pneumoperitoneum. No mediastinal hematoma. PULMONARY MERARI: No hilar mass or adenopathy is seen. THORACIC AORTA Unremarkable LUNG NODULE stable right lung nodules measuring up to 8 mm. No enlarging or new lung nodules. LUNGS: Mild atelectasis. PLEURAL EFFUSION: None PNEUMOTHORAX: No pneumothorax seen. CHEST WALL: No abnormality AXILLA:Unremarkable BONY STRUCTURES Intact UPPER ABDOMEN: Images of the upper abdomen are noncontributory. CT/CT chest wo con IMPRESSION: Stable lung nodules. No enlarging or new lung nodules. Impression dictated by: Hector Gutierrez M.D.09/30/2024 2:04 PM Dictation Location: [place] [address] Transcribed By: [facility] 09/30/24 1404 Dictated By: Hector Gutierrez DO 09/30/24 1401 Signed By: 09/30/24 1404 Normal [facility] CBC AND AUTO DIFFon 08-26-20 ABSOLUTE BASOPHIL 0.0 X10E9/L Normal 0.0-0.2 [facility] Comment on above: Performed By: #### C MP, CBCA, HA1C #### [facility] ([id number]) [address], [address] [place] [address] ABSOLUTE NEUTROPHIL 2.5 X10E9/L Normal 1.5-6.6 [facility] Comment on above: Performed By: #### C MP, CBCA, HA1C #### [facility] ([id number]) [address], [address] [place] [address] Basophils/100 WBC (Bld) 0.5 % Normal [facility] Comment on above: Performed By: #### C MP, CBCA, HA1C #### [facility] ([id number]) [address] [facility] [address] [place] [address] Eosinophils (Bld) [#/Vol] 0.1 10*3/uL Normal 0.0-0.4 [facility] Comment on above: Performed By: #### C MP, CBCA, HA1C #### [facility] ([id number]) [address] [facility] [address] [place] [address] Eosinophils/100 WBC (Bld) 2.2 % Normal [facility] Comment on above: Performed By: #### C MP, CBCA, HA1C #### [facility] ([id number]) [address], [address] [place] [address] Erythrocyte distribution width (RBC) [Ratio] 13.7 % Normal 11.5-15.0 [facility] Comment on above: Performed By: #### C MP, CBCA, HA1C #### [facility] ([id number]) [address] [address] [place] [address] Hematocrit (Bld) [Volume fraction] 39.3 % Normal 35-47 [facility] Comment on above: Performed By: #### C MP, CBCA, HA1C #### [facility] ([id number]) [address] [address] [place] [address] Hemoglobin (Bld) [Mass/Vol] 13.4 g/dL Normal 11.7-15.5 [facility] Comment on above: Performed By: #### C MP, CBCA, HA1C #### [facility] ([id number]) [address] [place] [address] Lymphocytes (Bld) [#/Vol] 2.6 10*3/uL Normal 1.0-3.5 [facility] Comment on above: Performed By: #### C PAU, CBCA, HA1C #### [facility] ([id number]) [address], [address] [place] [address] Lymphocytes/100 WBC (Bld) 45.5 % Normal [facility] Comment on above: Performed By: #### C PAU, CBCA, HA1C #### [facility] ([id number]) [address], [address] [place] [address] MCH (RBC) [Entitic mass] 30.5 pg Normal 27-34 [facility] Comment on above: Performed By: #### C PAU, CBCA, HA1C #### [facility] ([id number]) [address] [place] [address] MCHC (RBC) [Mass/Vol] 34.2 g/dL Normal 32-36 [facility] Comment on above: Performed By: #### C PAU, CBCA, HA1C #### [facility] ([id number]) [address], [address] [place] [address] MCV (RBC) [Entitic vol] 89 fL Normal 80-100 [facility] Comment on above: Performed By: #### C PAU, CBCA, HA1C #### [facility] ([id number]) [address], [address] [place] [address] Monocytes (Bld) [#/Vol] 0.5 10*3/uL Normal 0-0.9 [facility] Comment on above: Performed By: #### C PAU, CBCA, HA1C #### [facility] ([id number]) [address], [address] [place] [address] Monocytes/100 WBC (Bld) 8.0 % Normal [facility] Comment on above: Performed By: #### C MP, CBCA, HA1C #### [facility] ([id number]) [address], [address] [place] [address] Neutrophils/100 WBC (Bld) 43.8 % Normal [facility] Comment on above: Performed By: #### C MP, CBCA, HA1C #### [facility] ([id number]) [address] [facility] [address] [place] [address] Platelet mean volume (Bld) [Entitic vol] 10.7 fL Normal 7-12 [facility] Comment on above: Performed By: #### C MP, CBCA, HA1C #### [facility] ([id number]) [address] [facility] [address] [place] [address] Platelets (Bld) [#/Vol] 148 10*3/uL Low 150-450 [facility] Comment on above: Performed By: #### C MP, CBCA, HA1C #### [facility] ([id number]) [address] [place] [address] RBC COUNT 4.40 X10E12/L Normal 3.80-5.20 [facility] Comment on above: Performed By: #### C MP, CBCA, HA1C #### [facility] ([id number]) [address], [address] [place] [address] WBC (Bld) [#/Vol] 5.7 10*3/uL Normal 4.0-11.0 [facility] Comment on above: Performed By: #### C MP, CBCA, HA1C #### [facility] ([id number]) [address], [address] [place] [address] COMPREHENSIVE METABOLIC PANE Misbah 08-26-2024 Albumin [Mass/Vol] 4.2 g/dL Normal 3.2-5.3 [facility] Comment on above: Performed By: #### C MP, CBCA, HA1C #### [facility] ([id number]) [address], [address] [place] [address] ALP [Catalytic activity/Vol] 82 U/L Normal 39-130 [facility] Comment on above: Performed By: #### C PAU CBCA, HA1C #### [facility] ([id number]) [address], [address] [place] [address] ALT [Catalytic activity/Vol] 51 U/L High 0-31 [facility] Comment on above: Performed By: #### C PAU CBCA, HA1C #### [facility] ([id number]) [address], [address] [place] [address] Anion gap [Moles/Vol] 7 mmol/L Normal 5-15 [facility] Comment on above: Performed By: #### C PAU CBCA, HA1C #### [facility] ([id number]) [address] [place] [address] AST [Catalytic activity/Vol] 40 U/L Normal 0-41 [facility] Comment on above: Performed By: #### C PAU CBCA, HA1C #### [facility] ([id number]) [address] [place] [address] Bilirubin [Mass/Vol] 1.0 mg/dL Normal 0.3-1.2 [facility] Comment on above: Performed By: #### C PAU CBCA, HA1C #### [facility] ([id number]) [address] [place] [address] Calcium [Mass/Vol] 9.9 mg/dL Normal 8.5-10.5 [facility] Comment on above: Performed By: #### C PAU CBCA, HA1C #### [facility] ([id number]) [address] [place] [address] Chloride [Moles/Vol] 102 mmol/L Normal 98-109 [facility] Comment on above: Performed By: #### C NEERAJ MAI, HA1C #### [facility] ([id number]) [address] [place] [address] CO2 [Moles/Vol] 30 mmol/L Normal 22-32 [facility] Comment on above: Performed By: #### C NEERAJ MAI, HA1C #### [facility] ([id number]) [address] [address] [place] [address] Creatinine [Mass/Vol] 0.99 mg/dL Normal 0.40-1.00 [facility] Comment on above: Result Comment: METH OD TRACEABLE TO IDMS STANDARD Performed By: #### C NEERAJ MAI, DIANE1C #### [facility] ([id number]) [address] [address] [place] [address] GFR/1.73 sq M.predicted among non-blacks MDRD (S/P/Bld) [Vol rate/Area] 67 mL/min/{1.73_m2} Normal >59 [facility] Comment on above: Result Comment: Reported eGFR is based on the CKD-EPI 2020 equation that does not use a race coefficient. Performed By: #### C NEERAJ MAI, HA1C #### [facility] ([id number]) [address] [facility] [address] [place] [address] Glucose [Mass/Vol] 103 mg/dL High 65-99 [facility] Comment on above: Performed By: #### C NEERAJ MAI HA1C #### [facility] ([id number]) [address] [address] [place] [address] Potassium [Moles/Vol] 3.8 mmol/L Normal 3.5-5.0 [facility] Comment on above: Performed By: #### C NEERAJ MAI, HA1C #### [facility] ([id number]) [address] [address] [place] [address] Protein [Mass/Vol] 7.4 g/dL Normal 6.0-8.0 [facility] Comment on above: Performed By: #### C PAU CBCA, HA1C #### [facility] ([id number]) [address] [address] [place] [address] Sodium [Moles/Vol] 139 mmol/L Normal 134-146 [facility] Comment on above: Performed By: #### C PAU, CBCA, HA1C #### [facility] ([id number]) [address] [address] [place] [address] Urea nitrogen [Mass/Vol] 20 mg/dL Normal 5-23 [facility] Comment on above: Performed By: #### C PAU, CBCA, HA1C #### [facility] ([id number]) [address] [address] [place] [address] HGB A1C (GLYCO-HGB)on 2023 Glucose [Mass/Vol] 140 mg/dL Normal [facility] Comment on above: Performed By: #### C PAU CBCA, HA1C #### [facility] ([id number]) [address] [address] [place] [address] HbA1c (Bld) [Mass fraction] 6.5 % High 4.4-5.6 [facility] Comment on above: Result Comment: NOTE ADA Guidelines Result HgbA1c Normal : less than 5.7 % Prediabetes : 5.7 % to 6.4 % Diabetes : > 6.4 % Use with caution in patients with abnormal hemoglobin variants as the half-life of red blood cells and in vivo glycation rates are affected. Performed By: #### C PAU, CBCA, HA1C #### [facility] ([id number]) [address] [place] [address] IGP,APTIMA HPV,AGE GDLNon AGE GDLN ACOG TESTING Note . [facility] Comment on above: TESTS RESULT FLAG UN ITS REF RANGE LAB Clinician Provided Cytology Information Source.............Cervix;Endocervix No. of containers..01 ThinPrep Vial Age Algo ACOG Ana... 28 FLAG LEGEND: L-Low Normal,H-High Normal,LL-Alert Low,HH-Alert High <-Panic Low,>-Panic High,A-Abnormal,AA-Critical Abnormal Performed at: 01 =[address] [address] Erinn Gomez MD, HPV APTIMA Negative Negative [facility] Comment on above: This nucleic acid am plification test detects fourteen high- risk HPV types (16,18,31,33,35,39,45,51,52,56,58,59,66,68) without differentiation. Performed at: =[address] [id number] [employer]: Erinn Gomez MD, Phone: [phone] Performed at: [address] [id number] [employer]: Erinn Gomez MD, Phone: [phone] IGP, APTIMA HPV, RFX 16/18,45 Note . [facility] Comment on above: TESTS RESULT FLAG UN ITS REF RANGE LAB DIAGNOSIS: 02 NEGATIVE FOR INTRAEPITHELIAL LESION OR MALIGNANCY. Specimen adequacy: 02 Satisfactory for evaluation. Endocervical and/or squamous metaplastic cells (endocervical component) are present. Performed by: 02 Lianna Kaufman [employer] (ASCP) . 02 Note: Note 02 The Pap smear is a screening test designed to aid in the detection of premalignant and malignant conditions of the uterine cervix. It is not a diagnostic procedure and should not be used as the sole means of detecting cervical cancer. Both false-positive and false-negative reports do occur. Test Methodology: Note 02 This liquid based ThinPrep(R) pap test was screened with the use of an image guided system. HPV Genotype Reflex Note 02 Criteria not met, HPV Genotype not performed. FLAG LEGEND: L-Low Normal,H-High Normal,LL-Alert Low,HH-Alert High <-Panic Low,>-Panic High,A-Abnormal,AA-Critical Abnormal Performed at: [address] [place] [address] Erinn Gomez MD, BRUSH-SPATULA CERVIX ENDOCERVIX [facility] CBC AND AUTO DIFFon 04-07-20 24 ABSOLUTE BASOPHIL 0.0 X10E9/L Normal 0.0-0.2 [facility] Comment on above: Performed By: #### C BCA, CMP, 59730-0, THYR, 50778-3 #### [facility] ([id number]) [address], [address] [place] [address] ABSOLUTE NEUTROPHIL 2.7 X10E9/L Normal 1.5-6.6 [facility] Comment on above: Performed By: #### C BCA, CMP, 10676-1, THYR, 68388-3 #### [facility] ([id number]) [address] [place] [address] Basophils/100 WBC (Bld) 0.4 % Normal [facility] Comment on above: Performed By: #### C BCA, CMP, 36076-3, THYR, 80647-6 #### [facility] ([id number]) [address] [place] [address] Eosinophils (Bld) [#/Vol] 0.1 10*3/uL Normal 0.0-0.4 [facility] Comment on above: Performed By: #### C BCA, CMP, 74762-5, THYR, 78443-2 #### [facility] ([id number]) [address] [address] [place] [address] Eosinophils/100 WBC (Bld) 2.1 % Normal [facility] Comment on above: Performed By: #### C BCA, CMP, 33367-3, THYR, 88805-4 #### [facility] ([id number]) [address] [place] [address] Erythrocyte distribution width (RBC) [Ratio] 13.7 % Normal 11.5-15.0 [facility] Comment on above: Performed By: #### C BCA, CMP, 08759-8, THYR, 33915-0 #### [facility] ([id number]) [address] [place] [address] Hematocrit (Bld) [Volume fraction] 37.8 % Normal 35-47 [facility] Comment on above: Performed By: #### C BCA, CMP, 69030-0, THYR, 82560-7 #### [facility] ([id number]) [address] [place] [address] Hemoglobin (Bld) [Mass/Vol] 13.0 g/dL Normal 11.7-15.5 [facility] Comment on above: Performed By: #### C BCA, CMP, 86451-9, THYR, 88289-8 #### [facility] ([id number]) [address] [place] [address] Lymphocytes (Bld) [#/Vol] 2.4 10*3/uL Normal 1.0-3.5 [facility] Comment on above: Performed By: #### C BCA, CMP, 36843-7, THYR, 31283-1 #### [facility] ([id number]) [address] [place] [address] Lymphocytes/100 WBC (Bld) 43.2 % Normal [facility] Comment on above: Performed By: #### C BCA, CMP, 19992-5, THYR, 81731-7 #### [facility] ([id number]) [address] [place] [address] MCH (RBC) [Entitic mass] 30.6 pg Normal 27-34 [facility] Comment on above: Performed By: #### C BCA, CMP, 54609-3, THYR, 87286-2 #### [facility] ([id number]) [address] [place] [address] MCHC (RBC) [Mass/Vol] 34.5 g/dL Normal 32-36 [facility] Comment on above: Performed By: #### C BCA, CMP, 27324-7, THYR, 01563-5 #### [facility] ([id number]) [address] [place] [address] MCV (RBC) [Entitic vol] 89 fL Normal 80-100 [facility] Comment on above: Performed By: #### C BCA, CMP, 26532-2, THYR, 95268-0 #### [facility] ([id number]) [address] [place] [address] Monocytes (Bld) [#/Vol] 0.4 10*3/uL Normal 0-0.9 [facility] Comment on above: Performed By: #### C BCA, CMP, 09394-5, THYR, 55655-8 #### [facility] ([id number]) [address] [place] [address] Monocytes/100 WBC (Bld) 6.5 % Normal [facility] Comment on above: Performed By: #### Kiet BCA, CMP, 20782-7, THYR, 94110-9 #### [facility] ([id number]) [address] [place] [address] Neutrophils/100 WBC (Bld) 47.8 % Normal [facility] Comment on above: Performed By: #### C BCA, CMP, 31462-2, THYR, 46238-6 #### [facility] ([id number]) [address] [place] [address] Platelet mean volume (Bld) [Entitic vol] 10.7 fL Normal 7-12 [facility] Comment on above: Performed By: #### C BCA, CMP, 86553-2, THYR, 72209-8 #### [facility] ([id number]) [address] [place] [address] Platelets (Bld) [#/Vol] 136 10*3/uL Low 150-450 [facility] Comment on above: Performed By: #### C BCA, CMP, 41852-8, THYR, 84937-2 #### [facility] ([id number]) [address] [place] [address] RBC COUNT 4.26 X10E12/L Normal 3.80-5.20 [facility] Comment on above: Performed By: #### C BCA, CMP, 22840-9, THYR, 46963-3 #### [facility] ([id number]) [address] [facility] [address] [place] [address] WBC (Bld) [#/Vol] 5.6 10*3/uL Normal 4.0-11.0 [facility] Comment on above: Performed By: #### C BCA, CMP, 05119-3, THYR, 35140-5 #### [facility] [facility] ([id number]) [address], [address] [place] [address] COMPREHENSIVE METABOLIC PANE Misbah 04-07-2024 Albumin [Mass/Vol] 4.0 g/dL Normal 3.2-5.3 [facility] Comment on above: Performed By: #### C BCA, CMP, 18415-0, THYR, 00916-3 #### [facility] ([id number]) [address], [address] [place] [address] ALP [Catalytic activity/Vol] 89 U/L Normal 39-130 [facility] Comment on above: Performed By: #### C BCA, CMP, 21233-9, THYR, 54091-6 #### [facility] ([id number]) [address], [address] [place] [address] ALT [Catalytic activity/Vol] 47 U/L High 0-31 [facility] Comment on above: Performed By: #### C BCA, CMP, 48233-4, THYR, 73835-7 #### [facility] ([id number]) [address], [address] [place] [address] Anion gap [Moles/Vol] 8 mmol/L Normal 5-15 [facility] Comment on above: Performed By: #### C BCA, CMP, 69420-5, THYR, 90401-9 #### [facility] ([id number]) [address], [address] [place] [address] AST [Catalytic activity/Vol] 36 U/L Normal 0-41 [facility] Comment on above: Performed By: #### C BCA, CMP, 33763-3, THYR, 15467-4 #### [facility] ([id number]) [address], [address] [place] [address] Bilirubin [Mass/Vol] 1.2 mg/dL Normal 0.3-1.2 [facility] Comment on above: Performed By: #### C BCA, CMP, 06350-5, THYR, 44814-9 #### [facility] ([id number]) [address], [address] [place] [address] Calcium [Mass/Vol] 9.1 mg/dL Normal 8.5-10.5 [facility] Comment on above: Performed By: #### C BCA, CMP, 28060-5, THYR, 55662-3 #### [facility] ([id number]) [address], [address] [place] [address] Chloride [Moles/Vol] 102 mmol/L Normal 98-109 [facility] Comment on above: Performed By: #### C BCA, CMP, 22019-8, THYR, 66747-3 #### [facility] ([id number]) [address], [address] [place] [address] CO2 [Moles/Vol] 28 mmol/L Normal 22-32 [facility] Comment on above: Performed By: #### C BCA, CMP, 05956-0, THYR, 31866-0 #### [facility] ([id number]) [address] [place] [address] Creatinine [Mass/Vol] 0.94 mg/dL Normal 0.40-1.00 [facility] Comment on above: Result Comment: METH OD TRACEABLE TO IDMS STANDARD Performed By: #### C BCA, CMP, 57005-5, THYR, 16431-5 #### [facility] ([id number]) [address], [facility] [address] [place] [address] GFR/1.73 sq M.predicted among non-blacks MDRD (S/P/Bld) [Vol rate/Area] 72 mL/min/{1.73_m2} Normal >59 [facility] Comment on above: Result Comment: Reported eGFR is based on the CKD-EPI 2020 equation that does not use a race coefficient. Performed By: #### C BCA, CMP, 24673-1, THYR, 78702-7 #### [facility] ([id number]) [address] [place] [address] Glucose [Mass/Vol] 114 mg/dL High 65-99 [facility] Comment on above: Performed By: #### C BCA, CMP, 93849-9, THYR, 00258-1 #### [facility] ([id number]) [address] [place] [address] Potassium [Moles/Vol] 4.0 mmol/L Normal 3.5-5.0 [facility] Comment on above: Performed By: #### C BCA, CMP, 70463-9, THYR, 54798-8 #### [facility] ([id number]) [address] [place] [address] Protein [Mass/Vol] 7.1 g/dL Normal 6.0-8.0 [facility] Comment on above: Performed By: #### C BCA, CMP, 77890-6, THYR, 87857-6 #### [facility] ([id number]) [address], [address] [place] [address] Sodium [Moles/Vol] 138 mmol/L Normal 134-146 [facility] Comment on above: Performed By: #### C BCA, CMP, 19475-5, THYR, 72164-0 #### [facility] ([id number]) [address] [place] [address] Urea nitrogen [Mass/Vol] 19 mg/dL Normal 5-23 [facility] Comment on above: Performed By: #### C BCA, CMP, 53356-1, THYR, 81052-2 #### [facility] ([id number]) [address], [address] [place] [address] Lipid 1996 panelon 4 Cholesterol [Mass/Vol] 184 mg/dL Normal 150-200 [facility] Comment on above: Performed By: #### Kiet BCA, CMP, 21778-3, THYR, 34325-6 #### [facility] ([id number]) [address] [place] [address] Cholesterol in HDL [Mass/Vol] 47 mg/dL Normal >39 [facility] Comment on above: Result Comment: HDL <40 mg/dL - High Risk HDL > or = 40mg/dL- Desirable HDL >60 mg/dL - Negative Risk Performed By: #### C BCA, CMP, 94027-1, THYR, 52092-5 #### [facility] ([id number]) [address], [address] [place] [address] Cholesterol in LDL [Mass/Vol] 116 mg/dL Normal <130 [facility] Comment on above: Result Comment: LDL <100 mg/dL - Desirable LDL >160 mg/dL - High Risk Performed By: #### C BCA, CMP, 64370-3, THYR, 31762-7 #### [facility] ([id number]) [address], [address] [place] [address] Cholesterol in VLDL [Mass/Vol] 21 mg/dL Normal 0-30 [facility] Comment on above: Performed By: #### C BCA, CMP, 32978-1, THYR, 54385-7 #### [facility] ([id number]) [address], [facility] [address] [place] [address] CHOLESTEROL:HDL 3.9 Normal 1.0-5.0 [facility] Comment on above: Performed By: #### C BCA, CMP, 81379-6, THYR, 69757-4 #### [facility] ([id number]) [address], [address] [place] [address] Triglyceride [Mass/Vol] 104 mg/dL Normal 27-150 [facility] Comment on above: Performed By: #### C BCA, CMP, 30374-0, THYR, 42624-3 #### [facility] ([id number]) [address] [place] [address] THYROID PROFILEon 04-07-2024 Free T4 [Mass/Vol] 0.70 ng/dL Normal 0.61-1.60 [facility] Comment on above: Performed By: #### C BCA, CMP, 57579-0, THYR, 21880-6 #### [facility] ([id number]) [address] [place] [address] TSH 1.16 uIU/mL Normal 0.49-4.67 [facility] Comment on above: Performed By: #### C BCA, CMP, 72477-0, THYR, 12355-5 #### [facility] ([id number]) [address] [place] [address], [address] [place] [address] URINE CULTUREon 04-07-2024 Bacteria identified Cx Nom [...] S <=4 F TOBRAMYCIN S <=1 F TRIMETH/SULFAMETHOXAZO LE S <=1/19 F Susceptible [facility] Comment on above: Performed By: #### 6 30-4 #### [facility] ([id number]) [address] [place] [address], [facility] [address] [place] [address] Vitamin D+Metabolites [Mass/ Vol]on 04-07-2024 VITAMIN D 25 HYD TOT 60.6 ng/mL Normal 30-100 [facility] Comment on above: Result Comment: Vitamin D status 25 [place] Vitamin D Deficiency <20 ng/mL Insufficiency 20-29 ng/mL Sufficiency 30-100 ng/mL Toxicity >100 ng/mL NOTE: A pediatric reference range has not been established by the pile header of this kit. The [place] [employer] recommends a Vitamin D level of = or >20ng/mL in infants and children. Performed By: #### C RAS, [facility], 54930-6, [facility], 31400-6 #### [facility] ([id number]) [address] [place] [address], [address] [place] [address] Vital Signs Date Time Vital Sign Value Performing Clinician Facility 09-08-2024 09:36-0500 Body height 162.56 cm [facility] 09-08-2024 09:36-0500 Body mass index (BMI) [Ratio] 39.9 kg/m2 [facility] 09-08-2024 09:36-0500 Body weight 105.68 kg [facility] 09-08-2024 09:36-0500 Diastolic blood pressure 68 mm[Hg] [facility] 09-08-2024 09:36-0500 Heart rate 56 /min [facility] 09-08-2024 09:36-0500 Respiratory rate 20 /min [facility] 09-08-2024 09:36-0500 SaO2% (BldA) [Mass fraction] 96 % [facility] 09-08-2024 09:36-0500 Systolic blood pressure 122 mm[Hg] [facility] 07-22-2024 11:15-0400 Body height 162.6 cm Jenny Jerry PA Work Phone: [facility] 07-22-2024 11:15-0400 Body mass index (BMI) [Ratio] 39.48 kg/m2 Jenny Compa PA Work Phone: [facility] 07-22-2024 11:15-0400 Body weight 104.33 kg Jenny Compa PA Work Phone: [facility] 07-22-2024 11:15-0400 Diastolic blood pressure 78 mm[Hg] Jenny [place] PA Work Phone: [facility] 07-22-2024 11:15-0400 Systolic blood pressure 122 mm[Hg] Jenny Compa PA Work Phone: [facility] 09-11-2023 09:15-0500 Body height 160.02 cm Dottie Malcolm Other [facility] Other 09-11-2023 09:15-0500 Body mass index (BMI) [Ratio] 40.1 kg/m2 Dottie Malcolm Other [facility] Other 09-11-2023 09:15-0500 Body temperature 96.8 [degF] Raulal Chaban Other [facility] Other 09-11-2023 09:15-0500 Body weight 102.7 kg Dottie Ribeiroban Other [facility] Other 09-11-2023 09:15-0500 Diastolic blood pressure 86 mm[Hg] Raulal Chaban Other [facility] Other 09-11-2023 09:15-0500 Respiratory rate 20 /min Dottie Ribeiroban Other [facility] Other 09-11-2023 09:15-0500 SaO2% (BldA) [Mass fraction] 98 % Dottie Ribeiroban Other [facility] Other 09-11-2023 09:15-0500 Systolic blood pressure 142 mm[Hg] Dottie Chaban Other [facility] Other 12-06-2022 09:30-0500 Body height 160.02 cm Dottie Ribeiroban Other [facility] Other 12-06-2022 09:30-0500 Body mass index (BMI) [Ratio] 40.56 kg/m2 Dottie Ribeiroban Other [facility] Other 12-06-2022 09:30-0500 Body temperature 97.4 [degF] Raulal Chaban Other [facility] Other 12-06-2022 09:30-0500 Body weight 103.87 kg Dottie Ribeiroban Other [facility] Other 02-16-2023 09:30-0500 Diastolic blood pressure 86 mm[Hg] Raulal Chaban Other [facility] Other 12-06-2022 09:30-0500 Respiratory rate 20 /min Raulal Chaban Other [facility] Other 12-06-2022 09:30-0500 SaO2% (BldA) [Mass fraction] 98 % Dottie Chaban Other [facility] Other 12-06-2022 09:30-0500 Systolic blood pressure 132 mm[Hg] Raulal Chaban Other [facility] Other 10-10-2022 10:15-0500 Body height 160.02 cm Dottie Chaban Other [facility] Other 10-10-2022 10:15-0500 Body mass index (BMI) [Ratio] 40.21 kg/m2 Dottie Ribeiroban Other [facility] Other 10-10-2022 10:15-0500 Body temperature 97.3 [degF] Dottie Ribeiroban Other [facility] Other 10-10-2022 10:15-0500 Body weight 102.97 kg Dottie Chaban Other [facility] Other 10-10-2022 10:15-0500 Diastolic blood pressure 80 mm[Hg] Raulal Chaban Other [facility] Other 10-10-2022 10:15-0500 Respiratory rate 20 /min Raulal Chaban Other [facility] Other 10-10-2022 10:15-0500 SaO2% (BldA) [Mass fraction] 98 % Dottie Malcolm Other [facility] Other 10-10-2022 10:15-0500 Systolic blood pressure 126 mm[Hg] Dottie Malcolm Other [facility] Other Encounters Encounter Date Encounter Type Care Provider Facility Start: 09-30-2024 End: 09-30-2024 ambulatory [facility] Facility:[facility] Start: 09-08-2024 End: 09-08-2024 ambulatory [facility] Work Phone: Start: 09-08-2024 End: 09-08-2024 Patient encounter procedure [facility] Work Phone: Start: 08-26-2024 End: 08-26-[address] [facility] Start: 07-22-2024 End: 07-22-2024 Bamboo flowsheet Jenny MAYO Work Phone: [facility] Start: 07-22-2024 End: 07-29-2024 Bamboo flowsheet Jenny MAYO Work Phone: [facility] Start: 07-22-2024 End: 07-29-2024 Clinisync Result Encounter Jenny MAYO Work Phone: [facility] Unsolicited Start: 07-22-2024 End: 07-22-2024 Patient encounter procedure Jenny MAYO Work Phone: [facility] Start: 07-22-2024 End: 07-22-2024 Periodic preventive med est patient 40-64yrs Jenny MAYO Work Phone: [facility] Comment on above: Well woman exam with routine gynecological exam; Postmenopausal state; Breast cancer screening by mammogram Start: 07-22-2024 End: 07-22-2024 ambulatory JENNY JERRY Not Available Start: 04-07-2024 End: 04-07-2024 [facility] Start: 09-11-2023 End: 09-11-2023 ambulatory Kamal Chaban Other [facility] Other Start: 09-11-2023 Office outpatient vi sit 15 minutes Kamal Chaban [facility] Start: 06-12-2023 End: 06-12-2023 ambulatory Kamal Chaban Other [facility] Other Start: 06-12-2023 Telephone encounter Kamal Chaban [facility] Start: 12-06-2022 End: 12-06-2022 ambulatory Kamal Chaban Other [facility] Other Start: 12-06-2022 Office outpatient vi sit 25 minutes Kamal Chaban [facility] Start: 11-06-2022 End: 11-06-2022 ambulatory MD Tom Fishman Work Phone: [facility] Work Phone: Start: 11-06-2022 End: 11-06-2022 Patient encounter procedure MD Tom Fishman Work Phone: [facility] Work Phone: Start: 10-23-2022 End: 10-23-2022 ambulatory MD Tom Fishman Work Phone: [facility] Work Phone: Start: 10-23-2022 End: 10-23-2022 Patient encounter procedure MD Tom Fishman Work Phone: [facility] Work Phone: Start: 10-10-2022 End: 10-10-2022 ambulatory Kamal Chaban Other [facility] Other Start: 10-10-2022 Office outpatient ne w 45 minutes Dottie Malcolm [facility] Procedures Date Procedure Procedure Detail Performing Clinician Start: 07-22-2024 IGP,APTIMA HPV,AGE GDLN Jenny MAYO Work Phone: Start: 10-23-2022 CT of chest without contrast MD Tom Fishman Work Phone: Plan of Treatment Date Care Activity Detail Author Start: 07-27-2025 End: 07-27-2025 Patient encounter procedure 07/27/2025 10:00 AM EDT Office Visit [facility] [address] [place] [address] Jenny Jerry PA [address] [facility] [place] [address] [facility] Start: 07-22-2024 End: 07-22-2025 DXA Skeletal system Views for bone density DEXA bone density Imaging Routine Postmenopausal state Expected: 07/22/2024 (Approximate), Expires: 07/22/2025 [facility] Comment on above: Expected: 07/22/2024 (Approximate), Expires: 07/22/2025 Start: 07-22-2024 End: 09-21-2025 MG Breast - bilateral Screening Bilateral screening mammogram Imaging Routine Breast cancer screening by mammogram Expected: 07/22/2024, Expires: 09/21/2025 [facility] Work Phone: Comment on above: Expected: 07/22/2024 , Expires: 09/21/2025 Start: 07-22-2024 End: 07-22-2024 Patient encounter procedure 07/22/2024 11:00 AM EDT Office Visit [facility] [address] [place] [address] Jenny Jerry PA [address] [place] [address] Arrived [facility] Comment on above: Arrived CT Chest WO contrast [facility] THIN PREP TIS PAP AN D HR HPV DNA THIN PREP TIS PAP AND HR HPV DNA Pathology and Cytology Routine Well woman exam with routine gynecological exam Ordered: 07/22/2024 [facility] Comment on above: Ordered: 07/22/2024 Payers Date Payer Category Payer Self-pay 2006 Unknown BCBS BCBS [id number] 2006-Present [phone] [address] [place] [address] [id number] 2006 Unknown [id number] 1970 Unknown [id number] 1970 Unknown [id number] 1970 Unknown [id number] Unknown [id number] Social History Date Type Detail Facility Tobacco smoking status PAIS Unknown if ever smoked [facility] Work Phone: Start: 1970 Sex Assigned At Female F [facility] Sex Assigned At [facility] Other Tobacco smoking status PAIS Tobacco smoking consumption unknown [facility] Start: 1970 Sex assigned at Not on file N [facility] Start: 09-08-2024 Tobacco smoking status NHIS Never smoked tobacco (finding) [facility] Start: 09-08-2024 Sex Female (finding) [facility] History of Present illness Narrative 07-22-2024 GAEL [...] route. Bisoprolol-hydroCHLOROthiazide (ZIAC PO) Every 24 hours [place]-3 Fatty Acids (FISH OIL PO) VITAMIN D [...] nursing note reviewed. Exam conducted with a paint roller winder present. Vitals: Estimated body mass index is [...] of: GAEL Pisano documented in this encounter [facility] Evaluation note 09-11-2023 Note Date & Type Note Facility 09-11-2023 Evaluation note Encounter Date Diagnosis Assessment Notes Aug, Obstructive sleep apnea (ICD-10 - G47.33) Aug, Mild intermittent reactive airway disease without complication (ICD-10 - J45.20) [facility] Other Evaluation note 06-12-2023 Note Date & Type Note Facility 06-12-2023 Evaluation note Encounter Date Diagnosis Assessment Notes May, Obstructive sleep apnea (ICD-10 - G47.33) [facility] Other Evaluation note 12-06-2022 Note Date & Type Note Facility 12-06-2022 Evaluation note Encounter Date Diagnosis Assessment Notes Nov, Obstructive sleep apnea (ICD-10 - G47.33) Nov, Mild intermittent reactive airway disease without complication (ICD-10 - J45.20) Nov, Lung nodule (ICD-10 - R91.1) Discussed CT findings and follow-up plans [facility] Other Evaluation note 12-21-2022 Note Date & Type Note Facility 10-10-2022 Evaluation note Encounter Date Diagnosis Assessment Notes Sep, Mild intermittent reactive airway disease without complication (ICD-10 - J45.20) Anoro samples and education please Sep, Obstructive sleep apnea (ICD-10 - G47.33) Sep, Shortness of breath (ICD-10 - R06.02) [facility] Other Evaluation note Note Date & Type Note Facility Evaluation note No assessment information availa [facility] Work Phone: Evaluation note Note Date & Type Note Facility Evaluation note Diagnosis Well woman exam with routine gynecological exam Routine gynecological examination Postmenopausal state Asymptomatic postmenopausal status (age-related) (natural) Breast cancer screening by mammogram documented in this encounter [facility] Evaluation note Note Date & Type Note Facility Evaluation note Diagnosis Onset Date Resolution Lung nodule acute August 9:34am Mild intermittent reactive airway disease without complication acute September 082023 9:34am Obstructive sleep apnea acute N ovember 2023 9:34am [facility] Work Phone: History general Narrative - Reported Note Date & Type Note Facility History general Narrative - Reported Type Medical History hypertension Medical History COPD Surgical History breast duct removal 1998 [facility] Other Chief Complaint and Reason for Visit Chief Complaint g47.33 r06.02 Chief Complaint g47.33 r06.02 g47.33 r06.02 Chief Complaint Admit Date SEKOU: 1 yr f/u TORIBIO, RAD September 08 9:34am Reason for Visit Admit Date Lung nodule September 08, 2024 9:34am Mild intermittent reactive a irway disease without complication September 08, 2024 9:34am Obstructive sleep apnea September 08, 024 9:34am Advance Directives No Advanced Directives Records Found Advance Directive Response Recorded Date/ Time Advance Directives No October 23, 2022 3:57pm Summary Purpose Family History No Family History Records Found Relationship Condition Age at Onset Recorded Date/T lara mother Diabetes mellitus Unknown Hypertension Unknown History of stroke Unknown Malignant neoplasm Unknown Additional Source Comments Care Teams (unrecognized sec tion and content) Team Status: Active Member Role Status Dates Tom Fishman MD Primary Care Provider Active Team Status: Inactive Member Role Status Dates Tom Fishman MD Primary Care Provider Active Start: September 08, 2024 End: September 08, 2024 Clementine Burrell APRN [facility] Attending Provider Active Start: September 08, 2024 End: September 08, 2024 Team Status: Inactive Member Role Status Dates Dottie Malcolm MD Attending Provider Active Tom Fishman MD Primary Care Provider Active Dobie Worker Relationship Specialty Start Date End Date Tom Fishman MD [address] [place] [address] PCP - General Internal Medicine 07/22/24 Dobie Worker Relationship Specialty Start Date End Date Tom Fishman MD [address] [place] [address] PCP - General Internal Medicine 07/22/24 Dobie Worker Relationship Specialty Start Date End Date Tom Fishman MD [address] [place] [address] PCP - General Internal Medicine 07/22/24 Goals (unrecognized section and content) Goals may be documented in a n alternate sectionGoals may be documented in an alternate sectionNo InformationNo InformationNo InformationNo InformationGoals may be documented in an alternate section REASON FOR VISIT (unrecogniz ed section and content) Reason Comments Well Women Visit INFORMATION SOURCE (unrecogn ized section and content) DATE CREATED AUTHOR 07/24/2024 [facility] DATE CREATED AUTHOR AUTHOR'S ORGANIZ ATION 08/28/2024 [facility] DATE CREATED AUTHOR AUTHOR'S ORGANIZ ATION 10/03/2024 [facility] ysician Group FOR RECORDS PERTAINING TO PATIENTS WHO ARE [...] BE BASED ON THE PRIMARY CLINICAL RECORDS. [facility]. provides no warranty or guarantee of the accuracy or completeness of information in this document.
[2025-08-02 16:09] LABS: Age Gdln ACOG Testing Note (.); IGP, Aptima HPV, rfx 16/18,45 Note (.)
== END 2025-07-27 19:39 | disposition home or self-care (01) ==
LOC: LAB 19:38
PROVIDERS: Visit Provider Nurse Practitioner Family
DX: Z01.419 Encounter for gynecological examination (general) (routine) without abnormal findings (principal)
CPT/HCPCS: 87624; 88175

== ENCOUNTER 2025-08-03 09:10 | Outpatient (OUT) | payer BC, SELFPAY ==
--- NOTE | 2025-08-03 10:22 | MM_ITS ---
Patient Name: JULISSA MAYA MR#: [id number] : 1970 Exam Date: 08/03/2025 Ordering Doctor: VERNELL ALCALA CNP RADIOLOGY REPORT PROCEDURE: MM TOMOSYNTHESIS SCREENING BI COMPARISON: MM TOMOSYNTHESIS SCREENING BI, 07/30/2024. MG MAMM SCREEN LUZMARIA W CAD, 07/10/2023. MG MAMM SCREEN LUZMARIA W CAD, 01/18/2022. MG MAMM LT DIAG W CAD, 12/27/2020. INDICATIONS: breast cancer screening Calculator Name [facility] Breast Cancer Risk Assessment Tool 5 Year Breast Cancer Risk 2.60% Lifetime Breast Cancer Risk 16.30% Personal Breast Cancer No Personal Ovarian Cancer No Treatments None Family Cancers Aunt-maternal with thyroid cancer at age ~45; Grandmother-paternal with colon cancer at age 80; Grandfather-paternal with colon cancer at age 56; Mother with breast cancer at age 73; Aunt-maternal with cervical cancer at age 25. LOCATION: [facility] BREAST COMPOSITION: There are scattered areas of fibroglandular density. FINDINGS: DIAGNOSTIC CATEGORY 1--NEGATIVE. RIGHT BREAST: No significant suspicious finding. LEFT BREAST: No significant suspicious finding. RECOMMENDATIONS: ROUTINE MAMMOGRAM AND CLINICAL EVALUATION IN 12 MONTHS. Dictated by: Cihno Barraza DO on 08/03/2025 at 15:38 Approved by: Chino Barraza DO on 08/03/2025 at 15:40
[2025-08-03 10:34] LABS: Free T3 3.31 pg/mL (2.18-3.98); Glucose 127 mg/dL (74-106); Thyroid Stimulating Hormone 1.531 uIU/mL (0.358-3.740)
[2025-08-03 12:13] LABS: Ferritin 287.0 ng/mL (8.0-252.0)
[2025-08-04 08:09] LABS: Sex Horm Binding Glob, Serum 42.6 nmol/L (17.3-125.0)
[2025-08-06 11:09] LABS: Calcitriol(1,25 di-OH Vit D) 46.3 pg/mL (24.8-81.5)
[2025-08-08 10:08] LABS: Serotonin, Serum 52 ng/mL (31-207)
[2025-08-08 17:09] LABS: Reverse T3, Serum 26.5 ng/dL (9.2-24.1)
== END 2025-08-03 09:11 | disposition home or self-care (01) ==
LOC: LAB 09:11
PROVIDERS: Visit Provider Nurse Practitioner Family
DX: E34.9 Endocrine disorder, unspecified (principal); Z12.31 Encounter for screening mammogram for malignant neoplasm of breast; Z80.8 Family history of malignant neoplasm of other organs or systems; Z80.0 Family history of malignant neoplasm of digestive organs; Z80.3 Family history of malignant neoplasm of breast
CPT/HCPCS: 36415; 77063; 77067; 82530; 82627; 82652; 82670; 82679; 82728; 82947; 83036; 83525; 84144; 84260; 84270; 84402; 84403; 84432; 84436; 84439; 84443; 84481; 84482; 84681; 86376; 86800